=== PATIENT | female | born 1985 | race Caucasian/White ===

== ENCOUNTER 2018-05-27 14:20 | Emergency (ER) | payer OTHER ==
--- OUTSIDE RECORDS SUMMARY | 2018-05-27 14:22 | XMS REPORT ---
:1985 [facility] Address [address] [place] [address] Dr. Manuel [address] [place] [id number] Care Team Providers Name Role Phone Unavailable Unavailable Unavailable Problems This patient has no known problems. Allergies, Adverse Reactions, Alerts This patient has no known allergies or adverse reactions. Medications This patient has no known medications.
[2018-05-27] MEDS ORDERED: predniSONE 20 MG TAB ONE (15:24)
--- NOTE | 2018-05-27 15:34 | ER ---
Nurse's Notes [facility] Name: Shelly Gentile Age: 33 yrs Sex: Female : 1985 Arrival Date: 05/27/2018 Time: 14:25 Bed DIS1 Private MD: None, None Diagnosis: Urticaria, unspecified Presentation: 05/27 14:51 Presenting complaint: Patient states: Reports hx of "chronic" hives, states,. " They ph went away when I was and then came back really bad." Hives notes to back and abdomen, pt reports itching, denies SOB. Transition of care: patient was not received from another setting of care. Onset: The symptoms/episode began/occurred 20 year(s) ago. Anaphylaxis evaluation, no signs or symptoms of anaphylaxis were noted. Onset of symptoms was May 27, 2018. Risk Assessment: Do you want to hurt yourself or someone else? Patient reports no desire to harm self or others. Initial Sepsis Screen: Does the patient meet any 2 criteria? No. Patient's initial sepsis screen is negative. Does the patient have a suspected source of infection? No. Patient's initial sepsis screen is negative. Care prior to arrival: None. 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 - Social history:: Smoking status: Patient/guardian denies using tobacco. - Ebola Screening: : No symptoms or risks identified at this time. Screenin:20 Abuse screen: Denies threats or abuse. Denies injuries from another. Nutritional sv screening: No deficits noted. Tuberculosis screening: No symptoms or risk factors identified. Fall Risk None identified. Assessment: 15:20 General: Appears in no apparent distress. comfortable, Behavior is calm, cooperative, sv appropriate for age. Pain: Denies pain. Neuro: Level of Consciousness is awake, alert, obeys commands, Oriented to person, place, time, situation, Gait is steady. Respiratory: Airway is patent Respiratory effort is even, unlabored, Respiratory pattern is regular, symmetrical. Derm: Skin is pink, warm \\T\\ dry. Rash noted that is urticaria, on "all over". Vital Signs: 14:53 BP 99 / 80; Pulse 87; Resp 18; Temp 98.0; Pulse Ox 100% on R/A; ph ED Course: 14:25 Patient arrived in ED. mr 14:25 None, None is Private Physician. mr 14:28 Yumiko Burgos FNP-C is [facility]. kb 14:28 Dre Perez MD is Attending Physician. kb 14:48 Abimbola Bolaños, NIRALI is Primary Nurse. sv 14:53 Triage completed. ph 14:54 Arm band placed on Patient placed in an exam room. ph 15:20 Patient has correct armband on for positive identification. sv 15:41 No provider procedures requiring assistance completed. Patient did not have IV access sv during this emergency room visit. Administered Medications: 15:23 Drug: predniSONE 20 mg Route: PO; sv 15:44 Follow up: Response: No adverse reaction sv Outcome: 15:34 Discharge ordered by MD. kb 15:42 Discharged to home ambulatory, with family. sv 15:42 Condition: stable 15:42 Discharge instructions given to patient, Instructed on discharge instructions, follow up and referral plans. medication usage, Demonstrated understanding of instructions, follow-up care, medications, Prescriptions given X 2. 15:43 Patient left the ED. sv Signatures: Yumiko Burgos FNP-C FNP-Darianb Abimbola Bolaños, RN NIRALI Sarah Osullivan Hillary Mandel RN RN
--- NOTE | 2018-05-27 15:35 | EDPHYS ---
Physician Documentation [facility] Name: Shelly Gentile Age: 33 yrs Sex: Female : 1985 Arrival Date: 05/27/2018 Time: 14:25 Bed DIS1 Private MD: None, None ED Physician Dre Perez HPI: 05/27 15:33 This 33 yrs old Female presents to ER via Ambulatory with complaints of Hives.kb 15:33 The patient's rash thought to be caused by an unknown cause. The rash is located on the kb body diffusely. The rash can be described as urticarial. Onset: The symptoms/episode began/occurred 20 year(s) ago. Associated signs and symptoms: Pertinent positives: itching. Severity of symptoms: At their worst the symptoms were moderate in the emergency department the symptoms are unchanged. Treatment given at home: Benadryl. The patient has experienced similar episodes in the past, chronically. The patient has not recently seen a physician. Pt states "I suffer from chronic hives and they have been flaring up really bad since I delivered my son 5 weeks ago. I figured I would get them checked out while I was here with him.". 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 - Social history:: Smoking status: Patient/guardian denies using tobacco. - Ebola Screening: : No symptoms or risks identified at this time. ROS: 15:32 Constitutional: Negative for fever, chills, and weight loss, ENT: Negative for injury, kb pain, and discharge, Neck: Negative for injury, pain, and swelling, Cardiovascular: Negative for chest pain, palpitations, and edema, Respiratory: Negative for shortness of breath, cough, wheezing, and pleuritic chest pain, Abdomen/GI: Negative for abdominal pain, nausea, vomiting, diarrhea, and constipation, : Negative for injury, bleeding, discharge, and swelling, MS/Extremity: Negative for injury and deformity, Neuro: Negative for headache, weakness, numbness, tingling, and seizure. 15:32 Skin: Positive for rash, diffusely. Exam: 15:32 Constitutional: This is a well developed, well nourished patient who is awake, alert, kb and in no acute distress. Head/Face: Normocephalic, atraumatic. Chest/axilla: Normal chest wall appearance and motion. Nontender with no deformity. No lesions are appreciated. Cardiovascular: Regular rate and rhythm with a normal S1 and S2. No gallops, murmurs, or rubs. Normal PMI, no JVD. No pulse deficits. Respiratory: Lungs have equal breath sounds bilaterally, clear to auscultation and percussion. No rales, rhonchi or wheezes noted. No increased work of breathing, no retractions or nasal flaring. Abdomen/GI: Soft, non-tender, with normal bowel sounds. No distension or tympany. No guarding or rebound. No evidence of tenderness throughout. MS/ Extremity: Pulses equal, no cyanosis. Neurovascular intact. Full, normal range of motion. Neuro: Awake and alert, GCS 15, oriented to person, place, time, and situation. Cranial nerves II-XII grossly intact. Motor strength 5/5 in all extremities. Sensory grossly intact. Cerebellar exam normal. Normal gait. 15:32 Skin: consistent with urticaria, and is diffusely located. Vital Signs: 14:53 BP 99 / 80; Pulse 87; Resp 18; Temp 98.0; Pulse Ox 100% on R/A; ph MDM: 14:30 Patient medically screened. kb 15:32 Data reviewed: vital signs, nurses notes. Data interpreted: Pulse oximetry: on room air kb is 100 %. Interpretation: normal. 15:32 Counseling: I had a detailed discussion with the patient and/or guardian regarding: the kb historical points, exam findings, and any diagnostic results supporting the discharge/admit diagnosis, the need for outpatient follow up, a manager water wastewater, to return to the emergency department if symptoms worsen or persist or if there are any questions or concerns that arise at home. Administered Medications: 15:23 Drug: predniSONE 20 mg Route: PO; sv 15:44 Follow up: Response: No adverse reaction sv Disposition: 18:55 Co-signature as Attending Physician, Dre Perez MD. rn Disposition: 05/27/18 15:34 Discharged to Home. Impression: Urticaria, unspecified. - Condition is Stable. - Discharge Instructions: Hives, [id number]. - Prescriptions for Pepcid 20 mg Oral Tablet - take 1 tablet by ORAL route every 12 hours for 5 days; 10 tablet. Prednisone 20 mg Oral Tablet - take 2 tablet by ORAL route once daily for 5 days; 10 tablet. - Medication Reconciliation Form, Thank You Letter, Antibiotic Education, Prescription Opioid Use form. - Follow up: Emergency Department; When: As needed; Reason: Worsening of condition. Follow up: Private Physician; When: 2 - 3 days; Reason: Recheck today's complaints, Continuance of care, Re-evaluation by your physician. Signatures: Yumiko Burgos, ERICH-C [place]A REPAIRER-Abimbola Bray RN RN Dre Rodriguez MD MD rn Hillary Mandel RN RN ph Corrections: (The following items were deleted from the chart) 15:43 15:34 05/27/2018 15:34 Discharged to Home. Impression: Urticaria, unspecified. sv Condition is Stable. Forms are Medication Reconciliation Form, Thank You Letter, Antibiotic Education, Prescription Opioid Use. Follow up: Emergency Department; When: As needed; Reason: Worsening of condition. Follow up: Private Physician; When: 2 - 3 days; Reason: Recheck today's complaints, Continuance of care, Re-evaluation by your physician. kb
== END 2018-05-27 15:43 | disposition home or self-care (01) ==
LOC: ER 14:20
DX: L50.9 Urticaria, unspecified (principal)
CPT/HCPCS: 99283; J7512

== ENCOUNTER 2021-12-28 06:38 | Emergency (ER) | payer OTHER ==
--- OUTSIDE RECORDS SUMMARY | 2021-12-28 06:41 | XMS REPORT | Continuity of Care Document ---
:1985 Author Organization [facility] t Address [address] [place] [address] Care Team Providers Name Role Phone HAROON SAEED Primary Care Physician Unavailable Idania Edgar Attending Clinician [phone] Kim Prescott Attending Clinician Payers Payer Name Policy Type Policy Number Effective Date Expiration Date S son[place] [employer] [id number] 2021 HEALTH 00:00:00 Problems Condition Condition Condition Status Onset Resolution Last Treating Co mments Source Name Details Category Date Date Treatment Clinician Date BMI BMI Disease Active 2019- Univers 31.0-31.9, 31.0-31.9, 5-28 it y of adult adult 00:00: [place] [address] Medical Branch 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 9-09 ity of 00:00: [place] [address] Medical Branch Class 1 Class 1 Disease Active Univers obesity obesity 8-12 [place] of with body [place] index 00 [place] dical (BMI) of (BMI) of Branch 31.0 to 31.0 to 31.9 in 31.9 in adult, adult, unspecifie unspecifie d obesity d obesity type, type, unspecifie unspecifie d whether d whether serious serious comorbidit comorbidit y present y present Encounter Encounter Disease Active Uni vers for other for other 3-13 ity of general general 00:00: [place] counseling counseling 00 Me dical or advice or advice Bran ch on on contracept contracept ion ion Allergies, Adverse Reactions, Alerts Allergy Allergy Status Severity Reaction(s) Onset Inactive Treating Comm ents Source Name Type Date Date Clinician NO KNOWN Drug Active Univers ALLERGIE Class ity of S [facility] Social History Social Habit Start Date Stop Date Quantity Comments Source ASSERTION 2021-09-27 [facility] 00:00:00 [facility] History of tobacco 2007-09-20 Cigarette Smoker University of use 00:00:00 [facility] Alcohol intake 2021-12-08 2021-12-08 Current [facility] 00:00:00 00:00:00 non-drinker of [facility] alcohol [place] (finding) Exposure to 2021-11-27 2021-12-07 Not sure [facility] SARS-CoV-2 (event) 00:00:00 14:48:00 [facility] Tobacco use and 2021-12-07 2021-12-07 Smokeless Universit y of exposure 00:00:00 00:00:00 tobacco non-user [facility] dical [place] Cigarettes smoked 2021-12-07 2021-12-07 [facility] ity of current (pack per 00:00:00 00:00:00 ) - Reported Branch Cigarette 2021-12-07 2021-12-07 University of pack-years 00:00:00 00:00:00 [facility] Tobacco Comment 2021-12-07 2021-12-07 half a pack a Univer sity of 00:00:00 00:00:00 day [facility] Sex Ass[birth year] At [birth year] Universit y of 00:00:00 00:00:00 [facility] Smoking Status Start Date Stop Date Source Smokes tobacco daily 2021-12-07 00:00:00 [facility] ity of [facility] Medications Ordered Filled Start Stop Current Ordering Indication Dosage Frequency Signature Comments Components Source Medication Medication Date Date Medication? Clinician (SIG) Name Name PNV 67-iron Yes [id number] 1{each} Take 1 Univers ps-folate 9-12 Each by ity of no.1-dha 00:00: mouth [place] (VITAFOL 00 daily. Medical ULTRA) 29 Branch mg iron- 1 mg-200 mg Cap PNV 67-iron Yes [id number] 1{each} Take 1 Univers ps-folate 9-12 Each by ity of no.1-dha 00:00: mouth [place] (VITAFOL 00 daily. Medical ULTRA) 29 Branch mg iron- 1 mg-200 mg Cap Yes [id number] 1{tbl} Take 1 U nivers vit 9-09 tablet by ity of no.130-iron 00:00: mouth in [place] -folic 00 the Medical ( morning. Branch VITAMIN) Yes [id number] 1{tbl} Take 1 U nivers vit 9-09 tablet by ity of no.130-iron 00:00: [place] -folic 00 the Medical ( morning. Branch VITAMIN) Immunizations Ordered Filled Immunization Date Status Comments [facility] e Immunization Name Name Varicella 2019-06-11 Completed University of (varivax)(chicken 00:00:00 [place] M edical pox) Branch Varicella 2019-06-11 Completed University of (varivax)(chicken 00:00:00 [place] M edical pox) [place] TDAP 2019-03-30 Completed University of 00:00:00 [facility] Influenza Virus 2019-03-30 Completed Universit y of Vaccine Quad .5 mL 00:00:00 [facility] 6+ MO [place] TDAP 2019-03-30 Completed University of 00:00:00 [facility] Influenza Virus 2019-03-30 Completed Universit y of Vaccine Quad .5 mL 00:00:00 [facility] 6+ MO [place] TDAP 2018-01-28 Completed University of 00:00:00 [facility] TDAP 2018-01-28 Completed University of 00:00:00 [facility] Procedures This patient has no known procedures. Encounters Start End Encounter Admission Attending Care Care Encounter Source Date/Time Date/Time Type Type Clinicians Facility Department ID 2022-01-04 2022-01-[address] [facility] [id number] Univers 13:00:00 13:00:00 [id number] ity [facility] 2022-01-04 2022-01-[address] [facility] [id number] Univers 13:00:00 13:00:00 ity [facility] 2022-01-02 2022-01-[address] [facility] [id number] Univers 13:00:00 13:00:00 [id number] ity of [facility] 2021-12-15 2021-12-15 [facility] [id number] Univers 00:00:00 00:00:00 Idania Acuña PORTER SAMPLE CASE [id number] ity of REGIONAL [id number] Amari as MATERNAL [id number] [facility] [address] [place] [address] 2021-12-11 2021-12-11 Telephone Tomasz [facility] [id number] Univers 00:00:00 00:00:00 Kim Adams PORTER SAMPLE CASE [id number] ity of REGIONAL [id number] Amari as MATERNAL [id number] [facility] & CHILD [address] [place] [address] Results This patient has no known results.
[2021-12-28 07:08] LABS: Urine Blood Negative (Negative); Urine Glucose Negative (Negative); Urine Protein Negative (Negative); Urine Specific Gravity >=1.030 (1.005-1.030)
[2021-12-28] MEDS ORDERED: ONDANSETRON 4 MG/2 ML VIAL ONE (07:17)
[2021-12-28] MEDS ORDERED: NA CHLORIDE 0.9% 1,000 ML ONE (07:17)
[2021-12-28 07:35] LABS: Absolute Lymphocytes (CBC) 1.8 K/uL (0.7-4.9); Hematocrit 36.4 % (36.0-45.0); Lymphocytes % 14.8 % (15.3-44.8); MCV 87.5 fL (80-100); MPV 7.2 fL (7.6-11.3); RBC Red Blood Cell Count 4.16 M/uL (3.86-4.86)
[2021-12-28 07:48] LABS: Calcium Oxalate Crystals- Ur Few /HPF (None Seen); Urine RBC <5 /HPF (None Seen)
[2021-12-28 07:56] LABS: Albumin 3.2 g/dL (3.4-5.0); Bilirubin Total 0.2 mg/dL (0.2-1.0); Potassium 3.5 mmol/L (3.5-5.1); Protein, Total 7.5 g/dL (6.4-8.2)
--- NOTE | 2021-12-28 08:42 | RAD REPORT ---
EXAM DESCRIPTION: US - OB Limited - 12/28/2021 8:30 am CLINICAL HISTORY: Abd pain age. COMPARISON: OB FOLLOW UP dated 07/08/2008; TRANSVAG OB CERVIX ASSESSMENT dated 12/28/2021 FINDINGS: A single gestation is identified. Heart rate normal. The cervix is closed and measures 4.3 cm measurements are as follows: FL:2.1 Centimeters 16 week 1 day The estimated gestational age (EGA) is 16 week 1 day with an PAMELA of06/13/2022. The placenta is posterior. No placenta previa. The maternal adnexa show no worrisome findings. IMPRESSION: Single viable IUP with positive heart tones with estimated gestational age of 16 w [place] 1 day and PAMELA of 06/13/2022. Closed cervix.
--- NOTE | 2021-12-28 08:42 | RAD REPORT ---
EXAM DESCRIPTION: US - TRANSVAG OB CERVIX ASSESSMENT - 12/28/2021 8:30 am CLINICAL HISTORY: Abd pain age. COMPARISON: OB FOLLOW UP dated 07/08/2008; TRANSVAG OB CERVIX ASSESSMENT dated 12/28/2021 FINDINGS: A single gestation is identified. Heart rate normal. The cervix is closed and measures 4.3 cm measurements are as follows: FL:2.1 Centimeters 16 week 1 day The estimated gestational age (EGA) is 16 week 1 day with an PAMELA of06/13/2022. The placenta is posterior. No placenta previa. The maternal adnexa show no worrisome findings. IMPRESSION: Single viable IUP with positive heart tones with estimated gestational age of 16 w [place] 1 day and PAMELA of 06/13/2022. Closed cervix.
--- NOTE | 2021-12-28 08:59 | ER ---
Nurse's Notes [facility] Name: Shelly Gentile Age: 36 yrs Sex: Female : 1985 Arrival Date: 12/28/2021 Time: 06:41 Bed 8 Private MD: Diagnosis: Nausea with vomiting, unspecified;Low back pain Presentation: 12/28 06:50 Chief complaint: Patient states: i am having extream back pain and upper abdominal pain kd3 that started at 2 am this morning and has only gotten worse. i started vomiting about 30 minutes ago and I am still nauseous. I am 4 months . I also feel very bloated. Coronavirus screen: Vaccine status: Patient reports being unvaccinated. Ebola Screen: No symptoms or risks identified at this time. Initial Sepsis Screen: Does the patient meet any 2 criteria? No. Patient's initial sepsis screen is negative. Does the patient have a suspected source of infection? No. Patient's initial sepsis screen is negative. Risk Assessment: Do you want to hurt yourself or someone else? Patient reports no desire to harm self or others. Onset of symptoms was December 28, 2021. 06:50 Method Of Arrival: Ambulatory kd3 06:50 Acuity: CARMEN 3 kd3 Triage Assessment: 06:52 General: Appears uncomfortable, Behavior is calm, cooperative. Pain: Complains of pain kd3 in epigastric area. Neuro: Level of Consciousness is awake, alert, obeys commands, Oriented to person, place, time, situation. Respiratory: Airway is patent Trachea midline Respiratory effort is even, unlabored, Respiratory pattern is regular, symmetrical. Musculoskeletal: Circulation, motion, and sensation intact. 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 currently kd3 Historical: - Allergies: 06:52 No Known Allergies; kd3 - Home Meds: 06:52 None [Active]; kd3 - PMHx: 06:52 None; kd3 - Immunization history:: Adult Immunizations up to date. - Social history:: Smoking status: unknown. Screenin:53 Abuse screen: Denies threats or abuse. Denies injuries from another. Nutritional kd3 screening: No deficits noted. Tuberculosis screening: No symptoms or risk factors identified. Fall Risk None identified. Assessment: 06:59 General: Appears uncomfortable, Behavior is calm, cooperative. Neuro: Level of kd3 Consciousness is awake, alert, obeys commands, Oriented to person, place, time, situation. Respiratory: Airway is patent Trachea midline Respiratory effort is even, unlabored, Respiratory pattern is regular, symmetrical. 07:05 Reassessment: No changes from previously documented assessment. report received from ll1 material handler 1st shift RN. 07:20 Reassessment: No changes from previously documented assessment. Patient and/or family ll1 updated on plan of care and expected duration. Pain level reassessed. Patient is alert, oriented x 3, equal unlabored respirations, skin warm/dry/pink. 08:20 Reassessment: No changes from previously documented assessment. Patient and/or family kr3 updated on plan of care and expected duration. Pain level reassessed. 09:20 Reassessment: No changes from previously documented assessment. Patient and/or family kr3 updated on plan of care and expected duration. Pain level reassessed. 10:05 Reassessment: Patient states feeling better. Patient states symptoms have improved. kr3 Vital Signs: 06:50 Weight 77.11 kg; Height 5 ft. 2 in. (157.48 cm); Pain 10/10; kd3 06:59 BP 139 / 83; Pulse 76; Resp 20; Temp 98.0; Pulse Ox 100% on R/A; kd3 07:58 BP 111 / 72; Pulse 81; Resp 18; Pulse Ox 100% ; ll1 09:00 BP 111 / 72; Pulse 61; Resp 18; Pulse Ox 100% on R/A; kr3 09:00 BP 112 / 74; Pulse 70; Resp 18; Pulse Ox 100% on R/A; kr3 06:50 Body Mass Index 31.09 (77.11 kg, 157.48 cm) kd3 ED Course: 06:41 Patient arrived in ED. ja2 06:49 Addie Gaytan, NIRALI is Primary Nurse. kd3 06:52 Triage completed. kd3 06:52 Arm band placed on right wrist. kd3 06:53 Patient has correct armband on for positive identification. Placed in gown. kd3 07:07 Deniz Patino MD is Attending Physician. [id number] 07:26 Urine Culture Sent. ll1 07:27 Inserted saline lock: 20 gauge in right antecubital area, using aseptic technique. ll1 Blood collected. 08:31 OB Limited In Process Unspecified. EDMS 08:31 TRANSVAG OB CERVIX ASSESSMENT In Process Unspecified. EDMS 10:07 No provider procedures requiring assistance completed. IV discontinued, intact, kr3 bleeding controlled, No redness/swelling at site. Pressure dressing applied. Administered Medications: 07:25 Drug: NS 0.9% 1000 ml Route: IV; Rate: 1 bolus; Site: right antecubital; ll1 10:08 Follow up: Response: No adverse reaction; IV Status: Completed infusion; IV Intake: kr3 1000ml 07:25 Drug: Zofran (Ondansetron) 4 mg Route: IVP; Site: right antecubital; ll1 10:08 Follow up: Response: No adverse reaction kr3 Medication: 06:53 VIS not applicable for this client. kd3 Intake: 10:08 IV: 1000ml; Total: 1000ml. kr3 Outcome: 08:58 Discharge ordered by . 11 10:07 Discharged to home kr3 10:07 Condition: stable 10:07 Discharge instructions given to patient, Instructed on discharge instructions, follow up and referral plans. medication usage, Demonstrated understanding of instructions, follow-up care, medications, Prescriptions given X 1. 10:07 Patient left the ED. kr3 Signatures: Dispatcher [employer] EDMS Jennifer Kendrick RN RN ll1 Christin Blake Kyli, RN RN kd3 Deniz Patino MD MD [id number] Humaira De León RN RN kr3
--- NOTE | 2021-12-28 08:59 | EDPHYS ---
Physician Documentation [facility] Name: Shelly Gentile Age: 36 yrs Sex: Female : 1985 Arrival Date: 12/28/2021 Time: 06:41 Bed 8 Private MD: ED Physician Deniz Patino HPI: 12/28 07:18 This 36 yrs old Female presents to ER via Ambulatory with complaints of Back Pain, jr11 Nausea/Vomiting, Abdominal Pain. 07:18 The patient presents with pain that is acute, with no known mechanism of injury, jr11 diffuse across mid back. The symptoms are located in the lumbar spine. Onset: The symptoms/episode began/occurred 5 hour(s) ago. The pain does not radiate. Associated signs and symptoms: Pertinent positives: nausea, vomiting, x4 NBNB. The problem was sustained from unknown cause. Modifying factors: The patient symptoms are alleviated by nothing, the patient symptoms are aggravated by any movement. Severity of symptoms: At their worst the symptoms were moderate, in the emergency department the symptoms are unchanged. Pt is a lost 1 due to sAB 2/2 trauma unknown LMP ?4-5 mo here with mid back pain N/V x 4, no prior history of this. Denies being post prandial. No Abd pain, no diarrhea +polyuria. 07:18 +PNC over at [facility] . 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 currently kd3 Historical: - Allergies: 06:52 No Known Allergies; kd3 - Home Meds: 06:52 None [Active]; kd3 - PMHx: 06:52 None; kd3 - Immunization history:: Adult Immunizations up to date. - Social history:: Smoking status: unknown. ROS: 07:18 All other systems are negative. jr11 Exam: 07:18 Constitutional: This is a well developed, well nourished patient who is awake, alert, jr11 and in no acute distress. Head/Face: Normocephalic, atraumatic. Eyes: Extra-ocular motions intact. Lids and lashes normal. Conjunctiva and sclera are non-icteric and not injected. Cornea within normal limits. Periorbital areas with no swelling, redness, or edema. ENT: Nares patent. No nasal discharge, no septal abnormalities noted. Oropharynx with no redness, swelling, or masses, exudates, or evidence of obstruction, uvula midline. Mucous membranes moist. Neck: Trachea midline, no thyromegaly or masses palpated, and no cervical lymphadenopathy. Supple, full range of motion without nuchal rigidity, or vertebral point tenderness. No Meningismus. Chest/axilla: Normal chest wall appearance and motion. Nontender with no deformity. No lesions are appreciated. Cardiovascular: Regular rate and rhythm with a normal S1 and S2. No gallops, murmurs, or rubs. Normal PMI, no JVD. No pulse deficits. Respiratory: Lungs have equal breath sounds bilaterally, clear to auscultation and percussion. No rales, rhonchi or wheezes noted. No increased work of breathing, no retractions or nasal flaring. Abdomen/GI: gravid, non tender Skin: Warm, dry with normal turgor. Normal color with no rashes, no lesions, and no evidence of cellulitis. MS/ Extremity: Pulses equal, no cyanosis. Neurovascular intact. Full, normal range of motion. Neuro: Awake and alert, GCS 15, oriented to person, place, time, and situation. No gross motor or sensory deficits. Vital Signs: 06:50 Weight 77.11 kg; Height 5 ft. 2 in. (157.48 cm); Pain 10/10; kd3 06:59 BP 139 / 83; Pulse 76; Resp 20; Temp 98.0; Pulse Ox 100% on R/A; kd3 07:58 BP 111 / 72; Pulse 81; Resp 18; Pulse Ox 100% ; ll1 09:00 BP 111 / 72; Pulse 61; Resp 18; Pulse Ox 100% on R/A; kr3 09:00 BP 112 / 74; Pulse 70; Resp 18; Pulse Ox 100% on R/A; kr3 06:50 Body Mass Index 31.09 (77.11 kg, 157.48 cm) kd3 MDM: 07:15 Patient medically screened. jr11 07:18 Differential diagnosis: Obesity uti vs pyelo, msk injurym N/V, viral syndrome. Data jr11 reviewed: vital signs, nurses notes. ED course: Patient is a 36-year-old female that is , possibly 4 to 5 months, with abdominal bloating, nausea vomiting and mid back pain. Differential as above, will treat symptomatically in the meantime, given that she has not had an ultrasound, and is feeling abdominal bloating with mid back pain, will do an ultrasound. We will also check her urine rule out UTI versus J Carlos.. 08:57 ED course: Pt states all symptoms resolved, no more pain, will rx zofran with watchful jr11 waiting to f/u her own OBGYN on Saturday. Return is worsening. . 12/28 07:08 Order name: CBC with Diff; Complete Time: 08:29 12/28 07:08 Order name: CMP; Complete Time: 08:12/28 07:08 Order name: Lipase; Complete Time: 08:12/28 07:08 Order name: Urine Microscopic Only; Complete Time: 08:12/28 07:09 Order name: Urine Dipstick-Ancillary; Complete Time: 08:29 EDMS 12/28 07:16 Order name: Urine Culture [facility] 12/28 07:08 Order name: IV Saline Lock; Complete Time: 07:09 12/28 07:16 Order name: Quantitative Hcg; Complete Time: 08:29 12/28 07:49 Order name: OB Limited; Complete Time: 08:43 EDMS 12/28 08:19 Order name: TRANSVAG OB CERVIX ASSESSMENT; Complete Time: 08:43 EDMS 12/28 07:08 Order name: Labs collected and sent; Complete Time: 07:09 Administered Medications: 07:25 Drug: NS 0.9% 1000 ml Route: IV; Rate: 1 bolus; Site: right antecubital; ll1 10:08 Follow up: Response: No adverse reaction; IV Status: Completed infusion; IV Intake: kr3 1000ml 07:25 Drug: Zofran (Ondansetron) 4 mg Route: IVP; Site: right antecubital; ll1 10:08 Follow up: Response: No adverse reaction kr3 Disposition Summary: 12/28/21 08:58 Discharge Ordered Location: Home [facility] Condition: Stable jr Diagnosis - Nausea with vomiting, unspecified jr11 - Low back pain jr11 Followup: jr11 - With: Private Physician - When: You OBGYN - Reason: Continuance of care Discharge Instructions: - Discharge Summary Sheet jr11 - Acute Back Pain, Adult jr11 - Nausea and Vomiting, Adult jr11 Forms: - Medication Reconciliation Form jr11 - Thank You Letter jr11 - Antibiotic Education jr11 - Prescription Opioid Use jr11 Prescriptions: - Zofran 4 mg Oral Tablet - take 1 tablet by ORAL route every 12 hours As needed; 20 tablet; Refills: 0, jr11 Product Selection Permitted Signatures: Dispatcher [employer] EDJennifer Martínez RN RN ll1 Addie Gaytan RN RN kd3 Deniz Patino MD MD jr11 Humaira De León RN kr3 Corrections: (The following items were deleted from the chart) 07:49 07:17 OB Complete+US.RAD.BRZ ordered. EDNM EDMS
[2021-12-29 17:11] VITALS: TEMP 98; O2SAT 100
[2021-12-29 17:15] VITALS: BP 112/74
== END 2021-12-28 10:07 | disposition home or self-care (01) ==
LOC: ER 06:38
DX: O26.892 Other specified pregnancy related conditions, second trimester (principal); O21.9 Vomiting of pregnancy, unspecified; Z3A.16 16 weeks gestation of pregnancy
CPT/HCPCS: 96361; 87088; 85025; 87086; 36415; 84702; 83690; 80053; 76815; 76817; 96374; 99284; J7030; J2405; 81003; 81015

== ENCOUNTER 2023-02-25 12:57 | Emergency (ER) | payer SELFPAY ==
--- OUTSIDE RECORDS SUMMARY | 2023-02-25 13:07 | XMS REPORT | Continuity of Care Document ---
:1985 Author Organization [facility] t Address [address] [facility] [place] [address] Care Team Providers Name Role Phone Timmy Edgar Primary Care Physician [phone] TIMMY SANTAMARIA Attending Clinician Unavailable Savannah Wilson CNM Attending Clinician SAVANNAH WILSON Attending Clinician Unavailable VICTOR HUGO LEE Attending Clinician Unavailable Victor Hugo Lee MD Attending Clinician Timmy Edgar Attending Clinician [phone] NIKITA WILLIAM Attending Clinician Unavailable Delbert Mcgraw MD Attending Clinician Lucius Ivory MD Attending Clinician Hannah Borrego MD Attending Clinician [phone] Doctor Unassigned, Leigh Attending Clinician Unavailable Provider, Les Temp Attending Clinician Unavailable Ambar Paige Attending Clinician Unavailable Milton, Les Attending Clinician Unavailable JAVON JENSEN Attending Clinician Unavailable Javon Jensen MD Attending Clinician Haroon Cuello Attending Clinician Ultrasound, RiyaMftanesha Attending Clinician Unavailable Nikia Carey MD Attending Clinician [phone] NIKIA CAREY Attending Clinician Unavailable Jeny CAMPOVERDE, Loan Attending Clinician Unavailable Carlos JUNG, Rina Attending Clinician RUMA ROSAS Attending Clinician Unavailable Charlie CHOUDHURY, Ruma Attending Clinician MOUSTAPHA MENDOZA Attending Clinician Unavailable KIM CASILLAS Attending Clinician Unavailable Sonja JUNG, Kim Adams Attending Clinician HAROON SAEED Attending Clinician Unavailable Kobe Cabrera DO Attending Clinician Eran CARD, Sera Attending Clinician Akhil Ruiz MD Attending Clinician VICTOR HUGO LEE Admitting Clinician Unavailable Klaus CARD, Victor Hugo Admitting Clinician Eran ACRD, Sera Admitting Clinician Payers Payer Name Policy Type Policy Number Effective Date Expiration Date [facility] [id number] 2018 [facility] MEDICAID 00:00:00 [place] CHILDR[employer]AR [id number] 2021 00:00:00 Problems Condition Condition Condition Status Onset Resolution Last Treating Co mments Source Name Details Category Date Date Treatment Clinician Date Forceps Forceps Disease Active Univers delivery delivery 3-14 ity of with baby with baby 00:00: Veronika s delivered delivered 00 [facility] Single Single Disease Active Univers live live 3-14 it y of 00:00: [place] [address] Medical Branch Obesity Obesity Disease Active Univers (BMI (BMI 3-14 ity of 30-39.9) 30-39.9) 00:00: [place] [facility] Obstetrica Obstetrica Disease Active Overview : Univers l l 3-14 Formattin ity of laceration laceration 00:00: g of this [place] [address] note Medical might be Branch different from the original. Episiotom y Acute Acute Disease Active Univers blood loss blood loss 3-14 it y of anemia anemia 00:00: [address] Branch Labor and Labor and Disease Active Uni vers delivery, delivery, 3-13 ity of indication [place] 00:00: [place] for care for care 00 Medica l Branch Positive Positive Disease Active Overview: Un patrizia GBS test GBS test 3-02 Formattin ity of 00:00: g of this [place] 00 note Medical might be Branch different from the original. 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:[place] 2 (HSV-2) 2 (HSV-2) 00 [facility] infection infection Bran ch affecting affecting in third in third trimester trimester Back pain Back pain Disease Active 2021-04 Uni vers affecting affecting 1-05 it[place] of [place] in second in second 00 [facility] trimester trimester Bran ch BMI BMI Disease Active 2021-04 Univers 32.0-32.9, 32.0-32.9, 1-05 it y of adult adult 00:00: [place] 00 [facility] Disease Active 2021-04 Uni vers headache headache 1-05 ity of in second in second 00:[place] trimester trimester 00 [facility] Abnormal Abnormal Disease Active 2021-04 Overview: Un patrizia maternal maternal 0-07 Formattin ity of glucose glucose 00:00: g of this [place] tolerance, tolerance, 00 note Me dical antepartum antepartum might be Branch different from the original. pending 3hr , repeat at 26 weeks-pas sed Tobacco Tobacco Disease Active 2021-04 Univers use use 0-06 ity of disorder disorder 00:00: [place] 00 [facility] Branch Supervisio Supervisio Disease Active 2021-04 U nivers n of n of 0-06 ity of high-risk high-risk 00:00[place] 00 Medi hank of elderly of elderly Br anch multigravi multigravi da da Multiparit Multiparit Disease Active 2021-04 U nivers y y 0-06 ity of 00:00: [place] [facility] Branch AMA AMA Disease Active 2021-04 Univers (advanced (advanced 0-06 ity of maternal maternal 00:00: [place] age) age) 00 Medical multigravi multigravi Br anch da 35+ da 35+ Tobacco Tobacco Disease Active 2021-04 Univers use in use in 0-06 ity of 00:00: [facility] [address] BMI BMI Disease Active 2019- Univers 31.0-31.9, 31.0-31.9, 5-28 it y of adult adult 00:00: [address] 38 weeks 38 weeks Disease Active Unive rs gestation gestation 3-10 ity of of of 00:00: [place] 00 [facility] 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 9-09 ity of 00:00: [address] Herpes Herpes Disease Active Univers infection infection 9-09 ity of in in 00:00: [place] 00 [facility] Obesity in Obesity in Disease Active U nivers 8-12 ity of 00:00: [address] Encounter Encounter Disease Active Uni vers for other for other 3-13 ity of general general 00:00: [place] counseling counseling 00 Ar dical or advice or advice Bran ch on on contracept contracept ion ion Anemia, Anemia, Disease Active Univers 1-21 it y of 00:00: [address] Anemia of Anemia of Disease Active 2017-04 Uni vers mother in mother in 2-04 ity of , , 00:00[place] antepartum antepartum 00 Ar dical Branch Allergies, Adverse Reactions, Alerts Allergy Allergy Status Severity Reaction(s) Onset Inactive Treating Comm ents Source Name Type Date Date Clinician NO KNOWN Drug Active Univers ALLERGIE Class ity of S [facility] Social History Social Habit Start Date Stop Date Quantity Comments Source ASSERTION 2021-09-27 University 00:00:00 [facility] History of tobacco 2007-09-20 Cigarette Smoker University of use 00:00:00 [facility] 2022-06-25 2022-07-05 Not sure University SARS-CoV-2 (event) 00:00:00 13:20:00 [facility] Alcohol intake 2022-02-03 2022-02-03 Current University 00:00:00 00:00:00 non[facility]drinker of [facility] alcohol Branch (finding) History of Social 2021-12-07 2021-12-07 Univers ity of function 00:00:00 00:00:00 [facility] Tobacco use and 2021-12-07 2021-12-07 Smokeless Universit y of exposure 00:00:00 00:00:00 tobacco non-user [facility] dicny Branch Cigarettes smoked 2021-12-07 2021-12-07 Univers ity of current (pack per 00:00:00 00:00:00 [facility] ) - Reported Branch Cigarette 2021-12-07 2021-12-07 University of pack-years 00:00:00 00:00:00 [facility] Tobacco Comment 2021-12-07 2021-12-07 half a pack a Univer sity of 00:00:00 00:00:00 day [facility] Sex [birth year] Universit y of 00:00:00 00:00:00 [facility] Smoking Status Start Date Stop Date Source Smokes tobacco daily 2021-12-07 00:00:00 Univers ity of [facility] Medications Ordered Filled Start Stop Current Ordering Indication Dosage Frequency Signature Comments Components Source Medication Medication Date Date Medication? Clinician (SIG) Name Name hydrocortis Yes Topical Uni vers one 1 % 3-15 (Apply To ity of cream 13:00: Affected [place] 00 Areas), Medical BID, First Branch dose on Sat06/13/22 at 0800, Until Discontinu ed, Routine HYDROcodone Yes 1{tbl} 1 tablet, Univers -acetaminop 3-15 Oral, ity of hen (NORCO 02:04: Q6HPRN, [place] 5) 5-325 mg 46 Starting Medi hank tablet 1 on e Branch tablet 06/12/22 at 2104, Until Discontinu ed, Routine, Pain (scale 7-10) docusate Yes [id number] 200mg Take 2 U nivers 100 mg 3-15 capsules ity of capsule 00:00: by mouth [place] once daily Medical as needed Branch for Constipati on. ibuprofen Yes [id number] 600mg Take 1 Univers 600 mg 3-15 tablet by ity of tablet 00:00: mouth [place] 00 every 6 Medical (six) Branch hours as needed (Pain). Take with food or milk. HYDROcodone 2022-0 Yes [id number] 1{tbl} Take 1 Un patrizia -acetaminop 3-15 tablet by ity of hen 5-325 00:00: mouth [place] mg tablet 00 every 6 Medical (six) Branch hours as needed for Pain (scale 7-10). Indication s: acute pain docusate 3-0 Yes [id number] 200mg Take 2 U nivers 100 mg 3-15 capsules ity of capsule 00:00: by mouth [place] 00 once daily Medical as needed Branch for Constipati on. ibuprofen 2022-0 Yes [id number] 600mg Take 1 Univers 600 mg 3-15 tablet by ity of tablet 00:00: mouth [place] 00 every 6 Medical (six) Branch hours as needed (Pain). Take with food or milk. HYDROcodone 2022-0 Yes [id number] 1{tbl} Take 1 Un patrizia -acetaminop 3-15 tablet by ity of hen 5-325 00:00: mouth [place] mg tablet 00 every 6 Medical (six) Branch hours as needed for Pain (scale 7-10). Indication s: acute pain docusate 2022-0 Yes [id number] 200mg Take 2 U nivers 100 mg 3-15 capsules ity of capsule 00:00: by mouth [place] 00 once daily Medical as needed Branch for Constipati on. ibuprofen 3-0 Yes [id number] 600mg Take 1 Univers 600 mg 3-15 tablet by ity of tablet 00:00: mouth [place] 00 every 6 Medical (six) Branch hours as needed (Pain). Take with food or milk. HYDROcodone 2022-0 Yes [id number] 1{tbl} Take 1 Un patrizia -acetaminop 3-15 tablet by ity of hen 5-325 00:00: mouth [place] mg tablet 00 every 6 Medical (six) Branch hours as needed for Pain (scale 7-10). Indication s: acute pain docusate 2023-0 Yes [id number] 200mg Take 2 U nivers 100 mg 3-15 capsules ity of capsule 00:00: by mouth [place] 00 once daily Medical as needed Branch for Constipati on. ibuprofen 3-0 Yes [id number] 600mg Take 1 Univers 600 mg 3-15 tablet by ity of tablet 00:00: mouth [place] 00 every 6 Medical (six) Branch hours as needed (Pain). Take with food or milk. HYDROcodone 0 Yes [id number] 1{tbl} Take 1 Un patrizia -acetaminop 3-15 tablet by ity of hen 5-325 00:00: mouth [place] mg tablet 00 every 6 Medical (six) Branch hours as needed for Pain (scale 7-10). Indication s: acute pain HYDROcodone 2022-0 202- No 1{tbl} 1 tablet, Univers -acetaminop 3-14 03-14 Oral, ity of hen (NORCO 14:00: 14:49 ONCE, 1 [place] 5) 5-325 mg 00 :00 dose, On [facility] hank tablet 1 Sat tablet 06/12/22 at 0900, Routine rho(D) Yes 300ug 300 mcg, Univer s immune 3-14 Intramuscu ity of globulin 06:45: lar, ONCE, [place] (RHOGAM) 56 For 1 Medical syringe 300 dose, Branch mcg Conditiona l, Routine rho(D) Yes 300ug 300 mcg, Univer s immune 3-14 Intramuscu ity of globulin 06:45: [place], ONCE, [place] (RHOGAM) 56 For 1 Medical syringe 300 dose, Branch mcg Conditiona l, Routine ibuprofen Yes 600mg 600 mg, Univ ers (IBU) 3-14 Oral, ity of tablet 600 06:45: Q6HPRN, [place] mg 40 Starting Medical on Sat Branch 06/12/22 at 0145, Until Discontinu ed, Routine, Pain (scale 4-6) acetaminoph Yes 650mg 650 mg, Un patrizia en 3-14 Oral, ity of (TYLENOL) 06:45: Q6HPRN, [place] tablet 650 40 Starting Medic al mg on Sat06/12/22 at 0145, Until Discontinu ed, Routine, Pain (scale 1-3) diphenhydrA Yes 25mg 25 mg, Univ ers MINE 3-14 Oral, ity of (BENADRYL) 06:45: Q6HPRN, [place] tablet 25 40 Starting Medica l mg on Sat06/12/22 at 0145, Until Discontinu ed, Routine, Sleep, Itching ondansetron 2022-0 Yes 4mg 4 mg, Slow Univers (ZOFRAN 3-14 IV Push, ity of (PF)) 06:45: Q8HPRN, [place] injection 4 40 Starting Medi hank mg on [facility] 06/12/22 at 0145, Until Discontinu ed, Routine, Nausea and Vomiting (N/V) simethicone 2022-0 Yes 160mg 160 mg, Un patrizia (GAS RELIEF 3-14 Oral, ity of (SIMETHICON 06:45: PC+HSPRN, [place] E)) 40 Starting Medical chewable on [facility] tablet 160 06/12/22 at mg 0145, Until Discontinu ed, Routine, Gas docusate 2022-0 Yes 200mg 200 mg, Unive rs (COLACE) 3-14 Oral, ity of capsule 200 06:45: QDAILYPRN, [place] mg 40 Starting Medical on [facility] 06/12/22 at 0145, Until Discontinu ed, Routine, Constipati on magnesium 0 Yes 30mL 30 mL, Univer s hydroxide 06-12 Oral, ity of (MILK OF 06:45: QDAILYPRN, [place] MAGNESIA) 40 Starting Medica l 400 mg/5 mL on [facility] suspension 06/12/22 at 30 mL 0145, Until Discontinu ed, Routine, Constipati on benzocaine- 2022-0 Yes Topical, Un patrizia menthol 3-14 PRN, ity of (DERMOPLAST 06:45: Starting [place] ) 20-0.5 % 40 on [facility] Medical topical 06/12/22 at Branch spray 0145, Until Discontinu ed, Routine, Perineum discomfort human 2022-0 Yes .5mL 0.5 mL, Univers papillomav 314 Intramuscu ity of vac,9-rut(P 06:45: lar, [place] F) 40 ONCE-PRIOR Medical (GARDASIL-9 TO [place] ) syringe DISCHARGE, 0.5 mL 1 dose, Starting on Sat06/12/22 at 0145, Until Discontinu ed, Routine, Give vaccine prior to discharge ibuprofen 2022-0 Yes 600mg 600 mg, Univ ers (IBU) 3-14 Oral, ity of tablet 600 06:45: Q6HPRN, [place] mg 40 Starting Medical on Sat Branch 06/12/22 at 0145, Until Discontinu ed, Routine, Pain (scale 4-6) acetaminoph 202-0 Yes 650mg 650 mg, Un patrizia en 3-14 Oral, ity of (TYLENOL) 06:45: Q6HPRN, [place] tablet 650 40 Starting Medic al mg on Sat06/12/22 at 0145, Until Discontinu ed, Routine, Pain (scale 1-3) diphenhydrA 2022-0 Yes 25mg 25 mg, Univ ers MINE 3-14 Oral, ity of (BENADRYL) 06:45: Q6HPRN, [place] tablet 25 40 Starting Medica l mg on Sat06/12/22 at 0145, Until Discontinu ed, Routine, Sleep, Itching ondansetron 2022-0 Yes 4mg 4 mg, Slow Univers (ZOFRAN 314 IV Push, ity of (PF)) 06:45: Q8HPRN, [place] injection 4 40 Starting Medi hank mg on Sat Branch 06/12/22 at 0145, Until Discontinu ed, Routine, Nausea and Vomiting (N/V) simethicone 2022-0 Yes 160mg 160 mg, Un patrizia (GAS RELIEF 14 Oral, ity of (SIMETHICON 06:45: PC+HSPRN, [place] E)) 40 Starting Medical chewable on Sat tablet 160 06/12/22 at mg 0145, Until Discontinu ed, Routine, Gas docusate 2022-0 Yes 200mg 200 mg, Unive rs (COLACE) 3-14 Oral, ity of capsule 200 06:45: QDAILYPRN, [place] mg 40 Starting Medical on Sat Branch 06/12/22 at 0145, Until Discontinu ed, Routine, Constipati on magnesium 2022-0 Yes 30mL 30 mL, Univer s hydroxide 3-14 Oral, ity of (MILK OF 06:45: QDAILYPRN, [place] MAGNESIA) 40 Starting Medica l 400 mg/5 mL on Sat Branch suspension 06/12/22 at 30 mL 0145, Until Discontinu ed, Routine, Constipati on benzocaine- 2022-0 Yes Topical, Un patrizia menthol 3-14 PRN, ity of (DERMOPLAST 06:45: Starting [place] ) 20-0.5 % 40 on [facility] Medical topical 06/12/22 at [place] spray 0145, Until Discontinu ed, Routine, Perineum discomfort human 2022-0 Yes .5mL 0.5 mL, Univers papillomav 3-14 Intramuscu ity of vac,9-rut(P 06:45: lar, [place] F) 40 ONCE-PRIOR Medical (GARDASIL-9 TO [place] ) syringe DISCHARGE, 0.5 mL 1 dose, Starting on Sat06/12/22 at 0145, Until Discontinu ed, Routine, Give vaccine prior to discharge naloxone 2022-0 Yes .2mg 0.2 mg, Univer s (NARCAN) 3-14 Intramuscu ity o f injection 06:10: lar, [place] 0.2 mg 26 Q3HPRN, [facility] on Sat06/12/22 at 0110, Until Discontinu ed, Routine, Itching, PACU diphenhydrA 2022-0 Yes 25mg 25 mg, Univ ers MINE 3-14 Oral, ity of (BENADRYL) 06:10: Q4HPRN, [place] tablet 25 26 Starting Medica l mg on [facility] 06/12/22 at 0110, Until Discontinu ed, Routine, Itching, PACU naloxone 2022-0 Yes .2mg 0.2 mg, Univer s (NARCAN) 3-14 Intramuscu ity o f injection 06:10: lar, [place] 0.2 mg 26 Q3HPRN, [facility] on Sat06/12/22 at 0110, Until Discontinu ed, Routine, Itching, PACU diphenhydrA 2022-0 Yes 25mg 25 mg, Univ ers MINE 3-14 Oral, ity of (BENADRYL) 06:10: Q4HPRN, [place] tablet 25 26 Starting Medica l mg on [facility] 06/12/22 at 0110, Until Discontinu ed, Routine, Itching, PACU ketorolac 2022-0 2022- No 15mg 15 mg, Unive rs (TORADOL) 3-14 03-19 Slow IV ity of injection 06:10: 04:59 Push, [place] 15 mg 26 :00 Q6HPRN, 4 Medical doses, Branch Starting on Sat06/12/22 at 0110, Until 06/16/22 at 2359, Routine, Pain (scale 1-3), PACU ketorolac 2022- No 15mg 15 mg, Unive rs (TORADOL) 06-1219 Slow IV ity of injection 06:10: 04:59 Push, [place] 15 mg 26 :00 Q6HPRN, 4 Medical doses, Branch Starting on Sat06/12/22 at 0110, Until 06/16/22 at 2359, Routine, Pain (scale 1-3), PACU naloxone 2022- No .4mg 0.4 mg, Unive rs (NARCAN) 06-1216 Slow IV ity of injection 06:10: 06:09 [place], PRN [place] 0.4 mg 26 :26 - SEE Medical INSTRUCTIO Branch NS, Starting on Sat06/12/22 at 0110, Until [place] 06/14/22 at 0109, Routine, Analgesia Recovery, PACU diphenhydrA 2022- No 25mg 25 mg, Uni vers MINE 06-12 Slow IV ity of (BENADRYL) 06:10: 06:09 [place], [place] injection 26 :26 Q4HPRN, Medical 25 mg Starting Branch on Sat06/12/22 at 0110, Until 06/13/22 at 0109, Routine, Itching, PACU ondansetron 2022- No 4mg 4 mg, Slow Univers (ZOFRAN 06-12 IV Push, ity of (PF)) 06:10: 06:09 [id number], [place] injection 4 26 :26 Starting Medi hank mg on Sat Branch 06/12/22 at 0110, Until 06/13/22 at 0109, Routine, Nausea and Vomiting (N/V), PACU bupivacaine 0 2022- No Caudal Uni vers (preserv 06-1114 Block, ity of free) 19:31: 04:22 ONCE INTRA [place] (SENSORCAIN 00 :55 PROCEDURE, Me dical E MPF) 0.25 Starting Bran ch % (2.5 on Mon mg/mL) 06/11/22 at injection 1431, Until Sat06/11/22 at 2322, Routine, Intra-op ropivacaine 2022- No Epidural, Univers 0.2 % 06-11 CONTINUOUS ity of (NAROPIN 19:31: 04:22 PRN, [place] ()) 00 :55 Starting Medical epidural on Mon Branch infusion 06/11/22 at 1431, Until Sat06/11/22 at 2322, Routine, Intra-op bupivacaine 2022- No Caudal Uni vers (preserv 06-11 Block, ity of free) 19:31: 04:22 ONCE INTRA [place] (SENSORCAIN 00 :55 PROCEDURE, Me dical E MPF) 0.25 Starting Bran ch % (2.5 on Mon mg/mL) 06/11/22 at injection 1431, Until Sat06/11/22 at 2322, Routine, Intra-op ropivacaine 2022- No Epidural, Univers 0.2 % 06-11 CONTINUOUS ity of (NAROPIN 19:31: 04:22 PRN, [place] ()) 00 :55 Starting Medical epidural on Mon Branch infusion 06/11/22 at 1431, Until Sat06/11/22 at 2322, Routine, Intra-op lidocaine-e 2022- No Intravenou Univers pinephrine 06-11 03-14 s, ONCE ity o f (XYLOCAINE 19:30: 04:22 INTRA [place] W/EPINEPHRI 00 :55 PROCEDURE, Me dical NE) 2 Starting Branch %-1:200,000 on Mon injection 06/11/22 at 1430, Until Sat06/11/22 at 2322, Routine, Intra-op lidocaine-e 2022- No Intravenou Univers pinephrine 06-1114 s, ONCE ity o f (XYLOCAINE 19:30: 04:22 INTRA [place] W/EPINEPHRI 00 :55 PROCEDURE, Me dical NE) 2 Starting Branch %-1:200,000 on Mon injection 06/11/22 at 1430, Until Sat06/11/22 at 2322, Routine, Intra-op sodium 2022-2022- No 30mL 30 mL, Univers citrate-cit 06-11 Oral, ity of osorio acid 18:28: 19:09 PRE-PROCED [place] (BICITRA) 15 :00 URE ONCE, Medic al 500-334 1 dose, Branch mg/5 mL Starting solution 30 on Sat mL 06/11/22 at 1328, Until Sat06/11/22 at 1409, Routine, Surgery/Pr ocedure sodium 2022- No 30mL 30 mL, Univers citrate-cit 06-11 Oral, ity of osorio acid 09:22: 04:11 PRE-PROCED [place] (BICITRA) 38 :00 URE ONCE, Medic al 500-334 1 dose, Branch mg/5 mL Starting solution 30 on Sat mL 06/11/22 at 0422, Until Discontinu ed, Routine, Surgery/Pr ocedure [id number] IV 2022- No 1000mL at 1-125 U nivers infusion 06-11 mL/hr, IV ity o f 1,000 mL 09:20: 06:45 Infusion, [place] 50 :53 TITRATE, Medical Starting Branch on Sat06/11/22 at 0420, Until 06/12/22 at 0145, Routine ferrous 2022-0 Yes [id number] 325mg Take 1 Un patrizia sulfate 325 3-01 tablet by ity of mg (65 mg 00:00: mouth [place] iron) 00 the Medical tablet morning Branch and 1 tablet in the evening. ascorbic 2022-0 Yes [id number] 500mg Take 1 U nivers acid, 3-01 tablet by ity of vitamin C, 00:00: mouth in [place] 500 mg 00 the Medical tablet morning Branch and 1 tablet at noon and 1 tablet in the evening. ferrous 2022-0 Yes [id number] 325mg Take 1 Un patrizia sulfate 325 3-01 tablet by ity of mg (65 mg 00:00: mouth [place] iron) 00 the Medical tablet morning Branch and 1 tablet in the evening. ascorbic 2022-0 Yes [id number] 500mg Take 1 U nivers acid, 3-01 tablet by ity of vitamin C, 00:00: mouth in [place] 500 mg 00 the Medical tablet morning Branch and 1 tablet at noon and 1 tablet in the evening. ferrous 2023-0 Yes [id number] 325mg Take 1 Un patrizia sulfate 325 3-01 tablet by ity of mg (65 mg 00:00: [place] iron) 00 the Medical tablet morning Branch and 1 tablet in the evening. ascorbic 2022-0 Yes [id number] 500mg Take 1 U nivers acid, 3-01 tablet by ity of vitamin C, 00:00: mouth in [place] 500 mg 00 the Medical tablet morning Branch and 1 tablet at noon and 1 tablet in the evening. ferrous 2022-0 Yes [id number] 325mg Take 1 Un patrizia sulfate 325 3-01 tablet by ity of mg (65 mg 00:00: mouth [place] iron) 00 the Medical tablet morning Branch and 1 tablet in the evening. ascorbic 2022-0 Yes [id number] 500mg Take 1 U nivers acid, 3-01 tablet by ity of vitamin C, 00:00: mouth in [place] 500 mg 00 the Medical tablet morning Branch and 1 tablet at noon and 1 tablet in the evening. ferrous 2022-0 Yes [id number] 325mg Take 1 Un patrizia sulfate 325 3-01 tablet by ity of mg (65 mg 00:00: mouth [place] iron) 00 the Medical tablet morning Branch and 1 tablet in the evening. ascorbic 2022-0 Yes [id number] 500mg Take 1 U nivers acid, 3-01 tablet by ity of vitamin C, 00:00: mouth in [place] 500 mg 00 the Medical tablet morning Branch and 1 tablet at noon and 1 tablet in the evening. ferrous 2022-0 Yes [id number] 325mg Take 1 Un patrizia sulfate 325 3-01 tablet by ity of mg (65 mg 00:00: [place] iron) 00 the Medical tablet morning Branch and 1 tablet in the evening. ascorbic 2022-0 Yes [id number] 500mg Take 1 U nivers acid, 3-01 tablet by ity of vitamin C, 00:00: mouth in [place] 500 mg 00 the Medical tablet morning Branch and 1 tablet at noon and 1 tablet in the evening. ferrous 2022-0 Yes [id number] 325mg Take 1 Un patrizia sulfate 325 3-01 tablet by ity of mg (65 mg 00:00: [place] iron) 00 the Medical tablet morning Branch and 1 tablet in the evening. ascorbic 2022-0 Yes [id number] 500mg Take 1 U nivers acid, 3-01 tablet by ity of vitamin C, 00:00: mouth in [place] 500 mg 00 the Medical tablet morning Branch and 1 tablet at noon and 1 tablet in the evening. ferrous 202-0 Yes [id number] 325mg Take 1 Un patrizia sulfate 325 3-01 tablet by ity of mg (65 mg 00:00: [place] iron) 00 the Medical tablet morning Branch and 1 tablet in the evening. ascorbic 2022-0 Yes [id number] 500mg Take 1 U nivers acid, 3-01 tablet by ity of vitamin C, 00:00: mouth in [place] 500 mg 00 the Medical tablet morning Branch and 1 tablet at noon and 1 tablet in the evening. ferrous 2022-0 Yes [id number] 325mg Take 1 Un patrizia sulfate 325 3-01 tablet by ity of mg (65 mg 00:00: [place] iron) 00 the Medical tablet morning Branch and 1 tablet in the evening. ascorbic 2022-0 Yes [id number] 500mg Take 1 U nivers acid, 3-01 tablet by ity of vitamin C, 00:00: mouth in [place] 500 mg 00 the Medical tablet morning Branch and 1 tablet at noon and 1 tablet in the evening. ferrous 2022-0 Yes [id number] 325mg Take 1 Un patrizia sulfate 325 3-01 tablet by ity of mg (65 mg 00:00: [place] iron) 00 the Medical tablet morning Branch and 1 tablet in the evening. ascorbic 2022-0 Yes [id number] 500mg Take 1 U nivers acid, 3-01 tablet by ity of vitamin C, 00:00: mouth in [place] 500 mg 00 the Medical tablet morning Branch and 1 tablet at noon and 1 tablet in the evening. ferrous 202-0 Yes [id number] 325mg Take 1 Un patrizia sulfate 325 3-01 tablet by ity of mg (65 mg 00:00: [place] iron) 00 the Medical tablet morning Branch and 1 tablet in the evening. ascorbic 2022-0 Yes [id number] 500mg Take 1 U nivers acid, 3-01 tablet by ity of vitamin C, 00:00: mouth in [place] as 500 mg 00 the Medical tablet morning Branch and 1 tablet at noon and 1 tablet in the evening. ferrous 2023-0 Yes [id number] 325mg Take 1 Un patrizia sulfate 325 3-01 tablet by ity of mg (65 mg 00:00: mouth in [facility] s iron) 00 the Medical tablet morning Branch and 1 tablet in the evening. ascorbic 2023-0 Yes [id number] 500mg Take 1 U nivers acid, 3-01 tablet by ity of vitamin C, 00:00: mouth in [facility] as 500 mg 00 the Medical tablet morning Branch and 1 tablet at noon and 1 tablet in the evening. acyclovir 2023-0 Yes [id number] 400mg Take 1 [facility] 400 mg 2-21 tablet by ity of tablet 00:00: mouth in [place] 00 the Medical morning Branch and 1 tablet at noon and 1 tablet in the evening. acyclovir 2023-0 Yes [id number] 400mg Take 1 [facility] 400 mg 2-21 tablet by ity of tablet 00:00: mouth in [place] 00 the Medical morning Branch and 1 tablet at noon and 1 tablet in the evening. acyclovir 2023-0 Yes [id number] 400mg Take 1 [facility] 400 mg 2-21 tablet by ity of tablet 00:00: mouth in [place] 00 the Medical morning Branch and 1 tablet at noon and 1 tablet in the evening. acyclovir 2023-0 Yes [id number] 400mg Take 1 [facility] 400 mg 2-21 tablet by ity of tablet 00:00: mouth in [place] 00 the Medical morning Branch and 1 tablet at noon and 1 tablet in the evening. acyclovir 2023-0 Yes [id number] 400mg Take 1 [facility] 400 mg 2-21 tablet by ity of tablet 00:00: mouth in [place] 00 the Medical morning Branch and 1 tablet at noon and 1 tablet in the evening. acyclovir 2023-0 Yes [id number] 400mg Take 1 [facility] 400 mg 2-21 tablet by ity of tablet 00:00: mouth in [place] 00 the Medical morning Branch and 1 tablet at noon and 1 tablet in the evening. acyclovir 2023-0 Yes [id number] 400mg Take 1 [facility] 400 mg 2-21 tablet by ity of tablet 00:00: mouth in [place] 00 the Medical morning Branch and 1 tablet at noon and 1 tablet in the evening. acyclovir 2023-0 Yes [id number] 400mg Take 1 [facility] 400 mg 2-21 tablet by ity of tablet 00:00: mouth in [place] 00 the Medical morning Branch and 1 tablet at noon and 1 tablet in the evening. acyclovir 2023-0 Yes [id number] 400mg Take 1 [facility] 400 mg 2-21 tablet by ity of tablet 00:00: mouth in [place] 00 the [facility] morning [place] and 1 tablet at noon and 1 tablet in the evening. acyclovir 2023-0 Yes [id number] 400mg Take 1 Univers 400 mg 2-21 tablet by ity of tablet 00:00: mouth in [place] 00 the Medical morning Branch and 1 tablet at noon and 1 tablet in the evening. acyclovir 2023-0 Yes [id number] 400mg Take 1 [facility] 400 mg 2-21 tablet by ity of tablet 00:00: mouth in [place] [address] the [facility] morning Margaret and 1 tablet at noon and 1 tablet in the evening. acyclovir 2023-0 Yes [id number] 400mg Take 1 [facility] 400 mg 2-21 tablet by ity of tablet 00:00: mouth in [place] [address] the [facility] morning [place] and 1 tablet at noon and 1 tablet in the evening. acyclovir 2023-0 Yes [id number] 400mg Take 1 [facility] 400 mg 2-21 tablet by ity of tablet 00:00: mouth in [place] [address] the [facility] morning [place] and 1 tablet at noon and 1 tablet in the evening. acyclovir 2023-0 Yes [id number] 400mg Take 1 [facility] 400 mg 2-21 tablet by ity of tablet 00:00: mouth in [place] [address] the [facility] morning [place] and 1 tablet at noon and 1 tablet in the evening. acyclovir 2023-0 Yes [id number] 400mg Take 1 [facility] 400 mg 2-21 tablet by ity of tablet 00:00: mouth in [place] [address] the [facility] morning [place] and 1 tablet at noon and 1 tablet in the evening. acyclovir 2023-0 Yes [id number] 400mg Take 1 Univers 400 mg 2-21 tablet by ity of tablet 00:00: mouth in [place] [address] the [facility] and 1 tablet at noon and 1 tablet in the evening. Iron Fum & 2023-0 Yes [id number] 1{capsu Take 1 Univers P-FA-Vit B 1-11 le} capsule by ity of & C No.9 00:00: mouth [place] (INTEGRA 00 daily. Medical PLUS) 125 Branch mg iron- 1 mg Cap Iron Fum & 2023-0 Yes [id number] 1{capsu Take 1 Univers P-FA-Vit B 1-11 le} capsule by ity of & C No.9 00:00: mouth [place] (INTEGRA daily. Medical PLUS) 125 Branch mg iron- 1 mg Cap Iron Fum & 2023-0 Yes [id number] 1{capsu Take 1 Univers P-FA-Vit B 1-11 le} capsule by ity of & C No.9 00:00: mouth [place] (INTEGRA daily. Medical PLUS) 125 Branch mg iron- 1 mg Cap Iron Fum & 2023-0 Yes [id number] 1{capsu Take 1 Univers P-FA-Vit B 1-11 le} capsule by ity of & C No.9 00:00: mouth [place] (INTEGRA daily. Medical PLUS) 125 Branch mg iron- 1 mg Cap Iron Fum & 3-0 Yes [id number] 1{capsu Take 1 Univers P-FA-Vit B 1-11 le} capsule by [employer] & C No.9 00:00: mouth [place] (INTEGRA daily. Medical PLUS) 125 Branch mg iron- 1 mg Cap Iron Fum & 3-0 Yes [id number] 1{capsu Take 1 Univers P-FA-Vit B 1-11 le} capsule by ity [employer] & C No.9 00:00: mouth [place] (INTEGRA daily. Medical PLUS) 125 Branch mg iron- 1 mg Cap Iron Fum & 3-0 Yes [id number] 1{capsu Take 1 Univers P-FA-Vit B 1-11 le} capsule by ity of & C No.9 00:00: mouth [place] (INTEGRA daily. Medical PLUS) 125 Branch mg iron- 1 mg Cap Iron Fum & 2023-0 Yes [id number] 1{capsu Take 1 Univers P-FA-Vit B 1-11 le} capsule by ity of & C No.9 00:00: mouth [place] (INTEGRA daily. Medical PLUS) 125 Branch mg iron- 1 mg Cap Iron Fum & 2023-0 Yes [id number] 1{capsu Take 1 Univers P-FA-Vit B 1-11 le} capsule by ity of & C No.9 00:00: mouth [place] (INTEGRA daily. Medical PLUS) 125 Branch mg iron- 1 mg Cap Iron Fum & 3-0 Yes [id number] 1{capsu Take 1 Univers P-FA-Vit B 1-11 le} capsule by ity of & C No.9 00:00: mouth [place] (INTEGRA daily. Medical PLUS) 125 Branch mg iron- 1 mg Cap Iron Fum & 3-0 Yes [id number] 1{capsu Take 1 Univers P-FA-Vit B 1-11 le} capsule by ity of & C No.9 00:00: mouth [place] (INTEGRA 00 daily. Medical PLUS) 125 Branch mg iron- 1 mg Cap Iron Fum & 3-0 Yes [id number] 1{capsu Take 1 Univers P-FA-Vit B 1-11 le} capsule by ity of & C No.9 00:00: mouth [place] (INTEGRA daily. Medical PLUS) 125 Branch mg iron- 1 mg Cap Iron Fum & 3-0 Yes [id number] 1{capsu Take 1 Univers P-FA-Vit B 1-11 le} capsule by ity of & C No.9 00:00: mouth [place] (INTEGRA 00 daily. Medical PLUS) 125 Branch mg iron- 1 mg Cap Iron Fum & 2022-0 Yes [id number] 1{capsu Take 1 Univers P-FA-Vit B 1-11 le} capsule by ity of & C No.9 00:00: mouth [place] (INTEGRA daily. Medical PLUS) 125 Branch mg iron- 1 mg Cap Iron Fum & 3-0 Yes [id number] 1{capsu Take 1 Univers P-FA-Vit B 1-11 le} capsule by ity of & C No.9 00:00: mouth [place] (INTEGRA 00 daily. Medical PLUS) 125 Branch mg iron- 1 mg Cap Iron Fum & 3-0 3- No [id number] 1{capsu Take 1 Univers P-FA-Vit B 1-11 -15 le} capsule by it y of & C No.9 00:00: 00:00 mouth [place] (INTEGRA 00 :00 daily. Medical PLUS) 125 Branch mg iron- 1 mg Cap Iron Fum & 3-0 3- No [id number] 1{capsu Take 1 Univers P-FA-Vit B 1-11 -15 le} capsule by it y of & C No.9 00:00: 00:00 mouth [place] (INTEGRA 00 :00 daily. Medical PLUS) 125 Branch mg iron- 1 mg Cap valACYclovi 2021-04- No [id number] 500mg Take 1 Univers r 500 mg 04-05 tablet by ity o f tablet 00:00: 05:59 mouth in [place] 00 :00 the Medical morning Branch and 1 tablet in the evening. Do all this for 3 days. valACYclovi 2021-04- No [id number] 500mg Take 1 Univers r 500 mg 04-05 tablet by ity o f tablet 00:00: 05:59 mouth in [place] 00 :00 the Medical morning Branch and 1 tablet in the evening. Do all this for 3 days. valACYclovi 2021-04- No [id number] 500mg Take 1 Univers r 500 mg 04-05 tablet by ity o f tablet 00:00: 05:59 mouth in [place] 00 :00 the Medical morning Branch and 1 tablet in the evening. Do all this for 3 days. valACYclovi 2021-04- No [id number] 500mg Take 1 Univers r 500 mg 04-05 tablet by ity o f tablet 00:00: 05:59 mouth in [place] 00 :00 the Medical morning Branch and 1 tablet in the evening. Do all this for 3 days. acyclovir 2021-04- No [id number] 400mg Take 1 Univers 400 mg 04-01 tablet by ity of tablet 00:00: 05:59 mouth in [place] 00 :00 the Medical morning Branch and 1 tablet at noon and 1 tablet in the evening. Do all this for 5 days. acyclovir 2021-04- No [id number] 400mg Take 1 [facility] 400 mg 04-01 tablet by ity of tablet 00:00: 05:59 mouth in [place] 00 :00 the Medical morning Branch and 1 tablet at noon and 1 tablet in the evening. Do all this for 5 days. acyclovir 2021-04- No [id number] 400mg Take 1 [facility] 400 mg 04-01 tablet by ity of tablet 00:00: 00:00 mouth in [place] 00 :00 the Medical morning Branch and 1 tablet at noon and 1 tablet in the evening. Do all this for 5 days. PNV 67-iron 2021-0 Yes [id number] 1{each} Take 1 Univers ps-folate 9-12 Each by ity of no.1-dha 00:00: mouth [place] (VITAFOL 00 daily. Medical ULTRA) 29 Branch mg iron- 1 mg-200 mg Cap PNV 67-iron 2021-0 Yes [id number] 1{each} Take 1 [facility] ps-folate 9-12 Each by ity of no.1-dha 00:00: mouth [place] (VITAFOL 00 daily. Medical ULTRA) 29 Branch mg iron- 1 mg-200 mg Cap PNV 67-iron 2021-0 Yes [id number] 1{each} Take 1 Univers ps-folate 9-12 Each by ity of no.1-dha 00:00: mouth [place] (VITAFOL 00 daily. Medical ULTRA) 29 Branch mg iron- 1 mg-200 mg Cap PNV 67-iron 2-0 Yes [id number] 1{each} Take 1 Univers ps-folate 9-12 Each by ity of no.1-dha 00:00: mouth [place] (VITAFOL 00 daily. Medical ULTRA) 29 Branch mg iron- 1 mg-200 mg Cap PNV 67-iron 2021-0 Yes [id number] 1{each} Take 1 Univers ps-folate 9-12 Each by ity of no.1-dha 00:00: mouth [place] (VITAFOL 00 daily. Medical ULTRA) 29 Branch mg iron- 1 mg-200 mg Cap PNV 67-iron 2021-0 Yes [id number] 1{each} Take 1 Univers ps-folate 9-12 Each by ity of no.1-dha 00:00: mouth [place] (VITAFOL 00 daily. Medical ULTRA) 29 Branch mg iron- 1 mg-200 mg Cap PNV 67-iron 2021-0 Yes [id number] 1{each} Take 1 Univers ps-folate 9-12 Each by ity of no.1-dha 00:00: mouth [place] (VITAFOL 00 daily. Medical ULTRA) 29 Branch mg iron- 1 mg-200 mg Cap PNV 67-iron 2-0 Yes [id number] 1{each} Take 1 Univers ps-folate 9-12 Each by ity of no.1-dha 00:00: mouth [place] (VITAFOL 00 daily. Medical ULTRA) 29 Branch mg iron- 1 mg-200 mg Cap PNV 67-iron 2021-0 Yes [id number] 1{each} Take 1 Univers ps-folate 9-12 Each by ity of no.1-dha 00:00: mouth [place] (VITAFOL 00 daily. Medical ULTRA) 29 Branch mg iron- 1 mg-200 mg Cap PNV 67-iron 2-0 Yes [id number] 1{each} Take 1 Univers ps-folate 9-12 Each by ity of no.1-dha 00:00: mouth [place] (VITAFOL 00 daily. Medical ULTRA) 29 Branch mg iron- 1 mg-200 mg Cap PNV 67-iron 2-0 Yes [id number] 1{each} Take 1 [facility] ps-folate 9-12 Each by ity of no.1-dha 00:00: mouth [place] (VITAFOL 00 daily. Medical ULTRA) 29 Branch mg iron- 1 mg-200 mg Cap PNV 67-iron 2-0 Yes [id number] 1{each} Take 1 Univers ps-folate 9-12 Each by ity of no.1-dha 00:00: mouth [place] (VITAFOL 00 daily. Medical ULTRA) 29 Branch mg iron- 1 mg-200 mg Cap PNV 67-iron 2021-0 Yes [id number] 1{each} Take 1 [facility] ps-folate 9-12 Each by ity of no.1-dha 00:00: mouth [place] (VITAFOL 00 daily. Medical ULTRA) 29 Branch mg iron- 1 mg-200 mg Cap PNV 67-iron 2-0 Yes [id number] 1{each} Take 1 Univers ps-folate 9-12 Each by ity of no.1-dha 00:00: mouth [place] (VITAFOL 00 daily. Medical ULTRA) 29 Branch mg iron- 1 mg-200 mg Cap PNV 67-iron 2021-0 Yes [id number] 1{each} Take 1 Univers ps-folate 9-12 Each by ity of no.1-dha 00:00: mouth [place] (VITAFOL 00 daily. Medical ULTRA) 29 Branch mg iron- 1 mg-200 mg Cap PNV 67-iron 2-0 Yes [id number] 1{each} Take 1 Univers ps-folate 9-12 Each by ity of no.1-dha 00:00: mouth [place] (VITAFOL 00 daily. Medical ULTRA) 29 Branch mg iron- 1 mg-200 mg Cap PNV 67-iron 2-0 Yes [id number] 1{each} Take 1 Univers ps-folate 9-12 Each by ity of no.1-dha 00:00: mouth [place] (VITAFOL 00 daily. Medical ULTRA) 29 Branch mg iron- 1 mg-200 mg Cap PNV 67-iron 2-0 Yes [id number] 1{each} Take 1 [facility] ps-folate 9-12 Each by ity of no.1-dha 00:00: mouth [place] (VITAFOL 00 daily. Medical ULTRA) 29 Branch mg iron- 1 mg-200 mg Cap PNV 67-iron 2-0 Yes [id number] 1{each} Take 1 Univers ps-folate 9-12 Each by ity of no.1-dha 00:00: mouth [place] (VITAFOL 00 daily. Medical ULTRA) 29 Branch mg iron- 1 mg-200 mg Cap PNV 67-iron 2-0 Yes [id number] 1{each} Take 1 [facility] ps-folate 9-12 Each by ity of no.1-dha 00:00: mouth [place] (VITAFOL 00 daily. Medical ULTRA) 29 Branch mg iron- 1 mg-200 mg Cap PNV 67-iron 2-0 Yes [id number] 1{each} Take 1 Univers ps-folate 9-12 Each by ity of no.1-dha 00:00: mouth [place] (VITAFOL 00 daily. Medical ULTRA) 29 Branch mg iron- 1 mg-200 mg Cap PNV 67-iron 2-0 Yes [id number] 1{each} Take 1 Univers ps-folate 9-12 Each by ity of no.1-dha 00:00: mouth [place] (VITAFOL 00 daily. Medical ULTRA) 29 Branch mg iron- 1 mg-200 mg Cap PNV 67-iron 2-0 Yes [id number] 1{each} Take 1 Univers ps-folate 9-12 Each by ity of no.1-dha 00:00: mouth [place] (VITAFOL 00 daily. Medical ULTRA) 29 Branch mg iron- 1 mg-200 mg Cap PNV 67-iron 2022-0 Yes [id number] 1{each} Take 1 Univers ps-folate 9-12 Each by ity of no.1-dha 00:00: mouth [place] (VITAFOL 00 daily. Medical ULTRA) 29 Branch mg iron- 1 mg-200 mg Cap PNV 67-iron 2-0 Yes [id number] 1{each} Take 1 Univers ps-folate 9-12 Each by ity of no.1-dha 00:00: mouth [place] (VITAFOL 00 daily. Medical ULTRA) 29 Branch mg iron- 1 mg-200 mg Cap PNV 67-iron 2-0 Yes [id number] 1{each} Take 1 Univers ps-folate 9-12 Each by ity of no.1-dha 00:00: mouth [place] (VITAFOL 00 daily. Medical ULTRA) 29 Branch mg iron- 1 mg-200 mg Cap PNV 67-iron 2-0 Yes [id number] 1{each} Take 1 Univers ps-folate 9-12 Each by ity of no.1-dha 00:00: mouth [place] (VITAFOL 00 daily. Medical ULTRA) 29 Branch mg iron- 1 mg-200 mg Cap PNV 67-iron 2-0 Yes [id number] 1{each} Take 1 Univers ps-folate 9-12 Each by ity of no.1-dha 00:00: mouth [place] (VITAFOL 00 daily. Medical ULTRA) 29 Branch mg iron- 1 mg-200 mg Cap PNV 67-iron 2-0 Yes [id number] 1{each} Take 1 Univers ps-folate 9-12 Each by ity of no.1-dha 00:00: mouth [place] (VITAFOL 00 daily. Medical ULTRA) 29 Branch mg iron- 1 mg-200 mg Cap PNV 67-iron 2-0 Yes [id number] 1{each} Take 1 Univers ps-folate 9-12 Each by ity of no.1-dha 00:00: mouth [place] (VITAFOL 00 daily. Medical ULTRA) 29 Branch mg iron- 1 mg-200 mg Cap PNV 67-iron 2-0 Yes [id number] 1{each} Take 1 Univers ps-folate 9-12 Each by ity of no.1-dha 00:00: mouth [place] (VITAFOL 00 daily. Medical ULTRA) 29 Branch mg iron- 1 mg-200 mg Cap PNV 67-iron 2022-0 Yes [id number] 1{each} Take 1 Univers ps-folate 9-12 Each by ity of no.1-dha 00:00: mouth [place] (VITAFOL 00 daily. Medical ULTRA) 29 Branch mg iron- 1 mg-200 mg Cap PNV 67-iron 2-0 Yes [id number] 1{each} Take 1 [facility] ps-folate 9-12 Each by ity of no.1-dha 00:00: mouth [place] (VITAFOL 00 daily. Medical ULTRA) 29 Branch mg iron- 1 mg-200 mg Cap PNV 67-iron 2022-0 Yes [id number] 1{each} Take 1 [facility] ps-folate 9-12 Each by ity of no.1-dha 00:00: mouth [place] (VITAFOL 00 daily. Medical ULTRA) 29 Branch mg iron- 1 mg-200 mg Cap PNV 67-iron 2-0 Yes [id number] 1{each} Take 1 [facility] ps-folate 9-12 Each by ity of no.1-dha 00:00: mouth [place] (VITAFOL 00 daily. Medical ULTRA) 29 Branch mg iron- 1 mg-200 mg Cap PNV 67-iron 2-0 Yes [id number] 1{each} Take 1 [facility] ps-folate 9-12 Each by ity of no.1-dha 00:00: mouth [place] (VITAFOL 00 daily. Medical ULTRA) 29 Branch mg iron- 1 mg-200 mg Cap PNV 67-iron 2-0 Yes [id number] 1{each} Take 1 [facility] ps-folate 9-12 Each by ity of no.1-dha 00:00: mouth [place] (VITAFOL 00 daily. Medical ULTRA) 29 Branch mg iron- 1 mg-200 mg Cap PNV 67-iron 2-0 Yes [id number] 1{each} Take 1 [facility] ps-folate 9-12 Each by ity of no.1-dha 00:00: mouth [place] (VITAFOL 00 daily. Medical ULTRA) 29 Branch mg iron- 1 mg-200 mg Cap PNV 67-iron 2022-0 Yes [id number] 1{each} Take 1 [facility] ps-folate 9-12 Each by ity of no.1-dha 00:00: mouth [place] (VITAFOL 00 daily. Medical ULTRA) 29 Branch mg iron- 1 mg-200 mg Cap PNV 67-iron 2022-0 Yes [id number] 1{each} Take 1 [facility] ps-folate 9-12 Each by ity of no.1-dha 00:00: mouth [place] (VITAFOL 00 daily. Medical ULTRA) 29 Branch mg iron- 1 mg-200 mg Cap PNV 67-iron Yes [id number] 1{each} Take 1 [facility] ps-folate 9-12 Each by ity of no.1-dha 00:00: mouth [place] (VITAFOL 00 daily. Medical ULTRA) 29 Branch mg iron- 1 mg-200 mg Cap PNV 67-iron Yes [id number] 1{each} Take 1 [facility] ps-folate 9-12 Each by ity of no.1-dha 00:00: mouth [place] (VITAFOL 00 daily. Medical ULTRA) 29 Branch mg iron- 1 mg-200 mg Cap PNV 67-iron Yes [id number] 1{each} Take 1 [facility] ps-folate 9-12 Each by ity of no.1-dha 00:00: mouth [place] (VITAFOL 00 daily. Medical ULTRA) 29 Branch mg iron- 1 mg-200 mg Cap PNV 67-iron Yes [id number] 1{each} Take 1 [facility] ps-folate 9-12 Each by ity of no.1-dha 00:00: mouth [place] (VITAFOL 00 daily. Medical ULTRA) 29 Branch mg iron- 1 mg-200 mg Cap Yes [id number] 1{tbl} Take 1 U nivers vit 9-09 tablet by ity of no.130-iron 00:00: mouth in [place] -folic 00 the Medical ( morning. Branch VITAMIN) Yes [id number] 1{tbl} Take 1 U nivers vit 9-09 tablet by ity of no.130-iron 00:00: mouth in [place] -folic 00 the Medical ( morning. Branch VITAMIN) Yes [id number] 1{tbl} Take 1 U nivers vit 9-09 tablet by ity of no.130-iron 00:00: mouth in [place] -folic 00 the Medical ( morning. Branch VITAMIN) Yes [id number] 1{tbl} Take 1 U nivers vit 9-09 tablet by ity of no.130-iron 00:00: mouth in [place] -folic 00 the Medical ( morning. Branch VITAMIN) Yes [id number] 1{tbl} Take 1 U nivers vit 9-09 tablet by ity of no.130-iron 00:00: mouth in [place] -folic 00 the Medical ( morning. Branch VITAMIN) Yes [id number] 1{tbl} Take 1 U nivers vit 9-09 tablet by ity of no.130-iron 00:00: mouth in [place] -folic 00 the Medical ( morning. Branch VITAMIN) Yes [id number] 1{tbl} Take 1 U nivers vit 9-09 tablet by ity of no.130-iron 00:00: mouth in [place] -folic 00 the Medical ( morning. Branch VITAMIN) Yes [id number] 1{tbl} Take 1 U nivers vit 9-09 tablet by ity of no.130-iron 00:00: mouth in [place] -folic 00 the Medical ( morning. Branch VITAMIN) Yes [id number] 1{tbl} Take 1 U nivers vit 9-09 tablet by ity of no.130-iron 00:00: mouth in [place] -folic 00 the Medical ( morning. Branch VITAMIN) Yes [id number] 1{tbl} Take 1 U nivers vit 9-09 tablet by ity of no.130-iron 00:00: mouth in [place] -folic 00 the Medical ( morning. Branch VITAMIN) Yes [id number] 1{tbl} Take 1 U nivers vit 9-09 tablet by ity of no.130-iron 00:00: mouth in [place] -folic 00 the Medical ( morning. Branch VITAMIN) 0 Yes [id number] 1{tbl} Take 1 U nivers vit 9-09 tablet by ity of no.130-iron 00:00: mouth in [place] -folic 00 the Medical ( morning. Branch VITAMIN) 0 Yes [id number] 1{tbl} Take 1 U nivers vit 9-09 tablet by ity of no.130-iron 00:00: mouth in [place] -folic 00 the Medical ( morning. Branch VITAMIN) Yes [id number] 1{tbl} Take 1 U nivers vit 9-09 tablet by ity of no.130-iron 00:00: mouth in [place] -folic 00 the Medical ( morning. Branch VITAMIN) Yes [id number] 1{tbl} Take 1 U nivers vit 9-09 tablet by ity of no.130-iron 00:00: mouth in [place] -folic 00 the Medical ( morning. Branch VITAMIN) Yes [id number] 1{tbl} Take 1 U nivers vit 9-09 tablet by ity of no.130-iron 00:00: mouth in [place] -folic 00 the Medical ( morning. Branch VITAMIN) Yes [id number] 1{tbl} Take 1 U nivers vit 9-09 tablet by ity of no.130-iron 00:00: mouth in [place] -folic 00 the Medical ( morning. Branch VITAMIN) Yes [id number] 1{tbl} Take 1 U nivers vit 9-09 tablet by ity of no.130-iron 00:00: mouth in [place] -folic 00 the Medical ( morning. Branch VITAMIN) Yes [id number] 1{tbl} Take 1 U nivers vit 9-09 tablet by ity of no.130-iron 00:00: mouth in [place] -folic 00 the Medical ( morning. Branch VITAMIN) Yes [id number] 1{tbl} Take 1 U nivers vit 9-09 tablet by ity of no.130-iron 00:00: mouth in [place] -folic 00 the Medical ( morning. Branch VITAMIN) 0 Yes [id number] 1{tbl} Take 1 U nivers vit 9-09 tablet by ity of no.130-iron 00:00: mouth in [place] -folic 00 the Medical ( morning. Branch VITAMIN) 0 Yes [id number] 1{tbl} Take 1 U nivers vit 9-09 tablet by ity of no.130-iron 00:00: mouth in [place] -folic 00 the Medical ( morning. Branch VITAMIN) 0 Yes [id number] 1{tbl} Take 1 U nivers vit 9-09 tablet by ity of no.130-iron 00:00: mouth in [place] -folic 00 the Medical ( morning. Branch VITAMIN) 3- No [id number] 1{tbl} Take 1 [facility] vit 12-08 tablet by ity of no.130-iron 00:00: 00:00 mouth in [place] -folic 00 :00 the Medical ( morning. Branch VITAMIN) Immunizations Ordered Filled Date Status Comments Source Immunization Name Immunization Name TD 2022-04-10 Completed [facility] 00:00[facility]00 [facility] TDAP 2022-04-10 Completed [facility] 00:00:00 [facility] TDAP 2022-04-10 Completed [facility] 00:00:00 [facility] TDAP 2022-04-10 Completed [facility] 00:00:00 [facility] TDAP 2022-04-10 Completed [facility] of 00:00:00 [facility] TDAP 2022-04-10 Completed [facility] of 00:00:00 [facility] TDAP 2022-04-10 Completed [facility] of 00:00:00 [facility] TDAP 2022-04-10 Completed [facility] of 00:00:00 [facility] TDAP 2022-04-10 Completed [facility] of 00:00:00 [facility] TDAP 2022-04-10 Completed [facility] of 00[facility]00:00 [facility] TDAP 2022-04-10 Completed [facility] of 00:00:00 [facility] TDAP 2022-04-10 Completed [facility] of 00:00:00 [facility] TDAP 2022-04-10 Completed [facility] of 00:00:00 [facility] TDAP 2022-04-10 Completed [facility] of 00:00:00 [facility] TDAP 2022-04-10 Completed [facility] of 00:00:00 [facility] TDAP 2022-04-10 Completed [facility] of 00:00:00 [facility] TDAP 2022-04-10 Completed [facility] of 00:00:00 [facility] TDAP 2022-04-10 Completed [facility] of 00:00:00 [facility] TDAP 2022-04-10 Completed [facility] of 00:00:00 [facility] TDAP 2022-04-10 Completed [facility] of 00:00:00 [facility] TDAP 2022-04-10 Completed [facility] of 00:00:00 [facility] Varicella 2019-06-11 Completed University of (varivax)(chicken 00:00:00 [place] [facility] pox) Branch Varicella 2019-06-11 Completed [facility] of (varivax)(chicken 00:00:00 [place] [facility] pox) Branch Varicella 2019-06-11 Completed [facility] of (varivax)(chicken 00:00:00 [place] [facility] pox) Branch Varicella 2019-06-11 Completed [facility] of (varivax)(chicken 00:00:00 [place] [facility] pox) Branch Varicella 2019-06-11 Completed [facility] of (varivax)(chicken 00:00:00 [place] [facility] pox) Branch Varicella 2019-06-11 Completed [facility] of (varivax)(chicken 00:00:00 [place] [facility] pox) Branch Varicella 2019-06-11 Completed [facility] of (varivax)(chicken 00:00:00 [place] [facility] pox) Branch Varicella 2019-06-11 Completed [facility] of (varivax)(chicken 00:00:00 [place] [facility] pox) Branch Varicella 2019-06-11 Completed [facility] of (varivax)(chicken 00:00:00 [place] [facility] pox) Branch Varicella 2019-06-11 Completed [facility] of (varivax)(chicken 00:00:00 [place] [facility] pox) Branch Varicella 2019-06-11 Completed [facility] of (varivax)(chicken 00:00:00 [place] [facility] pox) Branch Varicella 2019-06-11 Completed [facility] of (varivax)(chicken 00:00:00 [place] [facility] pox) Branch Varicella 2019-06-11 Completed [facility] of (varivax)(chicken 00:00:00 [place] [facility] pox) Branch Varicella 2019-06-11 Completed [facility] of (varivax)(chicken 00:00:00 [place] [facility] pox) Branch Varicella 2019-06-11 Completed [facility] of (varivax)(chicken 00:00:00 [place] [facility] pox) Branch Varicella 2019-06-11 Completed [facility] of (varivax)(chicken 00:00:00 [place] [facility] pox) Branch Varicella 2019-06-11 Completed [facility] of (varivax)(chicken 00:00:00 [place] [facility] pox) Branch Varicella 2019-06-11 Completed [facility] of (varivax)(chicken 00:00:00 [place] [facility] pox) Branch Varicella 2019-06-11 Completed [facility] of (varivax)(chicken 00:00:00 [place] [facility] pox) Branch Varicella 2019-06-11 Completed [facility] of (varivax)(chicken 00:00:00 [place] [facility] pox) Branch Varicella 2019-06-11 Completed [facility] of (varivax)(chicken 00:00:00 [place] [facility] pox) Branch Varicella 2019-06-11 Completed [facility] of (varivax)(chicken 00:00:00 [place] [facility] pox) Branch Varicella 2019-06-11 Completed [facility] of (varivax)(chicken 00:00:00 [place] [facility] pox) Branch Varicella 2019-06-11 Completed [facility] of (varivax)(chicken 00:00:00 [place] [facility] pox) Branch Varicella 2019-06-11 Completed [facility] ([facility]ivax[facility] [place] [facility] Varicella 2019-06-11 Completed [facility] ([facility]ax[facility] 00:[facility] [place] [facility] Varicella 2019-06-11 Completed [facility] (varivax[facility] 00:00:[facility] [place] [facility] Varicella 2019-06-11 Completed [facility] (varivax[facility]icken 00:00:[facility] [place] [facility] Varicella 2019-06-11 Completed [facility] (varivax)(chicken 00:00:00 [place] [facility] Varicella 2019-06-11 Completed [facility] (varivax)([facility]icken 00:00:[facility] [place] [facility] Varicella 2019-06-11 Completed [facility] (varivax)(chicken 00:00:00 [place] [facility] Varicella 2019-06-11 Completed [facility] (varivax)(chicken 00:00:[facility] [place] [facility] Varicella 2019-06-11 Completed [facility] (varivax)([facility]icken 00:00:00 [place] [facility] Varicella 2019-06-11 Completed [facility] (varivax)([facility]icken 00:00:00 [place] [facility] Varicella 2019-06-11 Completed [facility] (varivax)(chicken 00:00:00 [place] [facility] Varicella 2019-06-11 Completed [facility] (varivax)(chicken 00:00:00 [place] [facility] Varicella 2019-06-11 Completed [facility] (varivax)(chicken 00:00:00 [place] [facility] Varicella 2019-06-11 Completed [facility] (varivax)(chicken 00:00:00 [place] [facility] Varicella 2019-06-11 Completed [facility] (varivax)(chicken 00:00:00 [place] [facility] Varicella 2019-06-11 Completed [facility] (varivax)(chicken 00:00:00 [place] [facility] Varicella 2019-06-11 Completed [facility] (varivax)(chicken 00:00:00 [place] [facility] Varicella 2019-06-11 Completed [facility] (varivax)(chicken 00:00:00 [place] [facility] Varicella 2019-06-11 Completed [facility] (varivax)(chicken 00:00:00 [place] [facility] Varicella 2019-06-11 Completed [facility] (varivax)([facility]icken 00:00:00 [place] [facility] TDAP 2019-03-30 Completed [facility] 00:00:00 [facility] Influenza Virus 2019-03-30 Completed Universit y of [facility] .5 mL 00:00:00 [facility] 6+ MO Margaret TDAP 2019-03-30 Completed [facility] of 00:00:00 [facility] Influenza Virus 2019-03-30 Completed Universit y of [facility] .5 mL 00:00:00 [facility] IM 6+ MO Margaret TDAP 2019-03-30 Completed [facility] of 00:00:00 [facility] Influenza Virus 2019-03-30 Completed Universit y of [facility] .5 mL 00:00:00 [facility] IM 6+ MO Margaret TDAP 2019-03-30 Completed [facility] of 00:00:00 [facility] Influenza Virus 2019-03-30 Completed Universit y of [facility] .5 mL 00:00:00 [facility] IM 6+ MO Margaret TDAP 2019-03-30 Completed [facility] of 00:00:00 [facility] Influenza Virus 2019-03-30 Completed Universit y of [facility] .5 mL 00:00:00 [facility] IM 6+ MO Margaret TDAP 2019-03-30 Completed [facility] 00:00:00 [facility] Influenza Virus 2019-03-30 Completed [facility]it y of [facility] .5 mL 00:00:00 [facility] 6+ MO [facility] TDAP 2019-03-30 Completed [facility] 00:00:00 [facility] Influenza Virus 2019-03-30 Completed Universit y of [facility] .5 mL 00:00:00 [facility] 6+ MO [facility] TDAP 2019-03-30 Completed [facility] of 00:00:00 [facility] Influenza Virus 2019-03-30 Completed Universit y of [facility] .5 mL 00:00:00 [facility] 6+ MO [facility] TDAP 2019-03-30 Completed [facility] of 00:00:00 [facility] Influenza Virus 2019-03-30 Completed [facility]it y of [facility] .5 mL 00:00:00 [facility] IM 6+ MO [facility] TDAP 2019-03-30 Completed [facility] 00:00:00 [facility] Influenza Virus 2019-03-30 Completed [facility]it y of [facility] .5 mL 00:00:00 [facility] 6+ MO Branch TDAP 2019-03-30 Completed [facility] of 00:00:00 [facility] Influenza Virus 2019-03-30 Completed Universit y of [facility] .5 mL 00:00:00 [facility] 6+ MO Branch TDAP 2019-03-30 Completed [facility] of 00:00:00 [facility] Influenza Virus 2019-03-30 Completed Universit y of [facility] .5 mL 00:00:00 [facility] 6+ MO Margaret TDAP 2019-03-30 Completed [facility] of 00:00:00 [facility] Influenza Virus 2019-03-30 Completed Universit y of [facility] .5 mL 00:00:00 [facility] 6+ MO Branch TDAP 2019-03-30 Completed [facility] of 00:00:00 [facility] Influenza Virus 2019-03-30 Completed Universit y of [facility] .5 mL 00:00:00 [facility] 6+ MO Branch TDAP 2019-03-30 Completed [facility] of 00:00:00 [facility] Influenza Virus 2019-03-30 Completed [facility]it y of [facility] .5 mL 00:00:00 [facility] 6+ MO [facility] TDAP 2019-03-30 Completed [facility] of 00:00:00 [facility] Influenza Virus 2019-03-30 Completed [facility]it y of [facility] .5 mL 00:00:00 [facility] 6+ MO [facility] TDAP 2019-03-30 Completed [facility] 00:00:00 [facility] Influenza Virus 2019-03-30 Completed [facility]it y of [facility] .5 mL 00:00:00 [facility] 6+ MO [facility] TDAP 2019-03-30 Completed [facility] of 00:00:00 [facility] Influenza Virus 2019-03-30 Completed [facility]it y of [facility] .5 mL 00:00:00 [facility] 6+ MO [facility] TDAP 2019-03-30 Completed [facility] of 00:00:00 [facility] Influenza Virus 2019-03-30 Completed [facility]it y of [facility] .5 mL 00:00:00 [facility] 6+ MO [facility] TDAP 2019-03-30 Completed [facility] 00:00:00 [facility] Influenza Virus 2019-03-30 Completed [facility] y of [facility] .5 mL 00:00:00 [facility] 6+ MO [facility] TDAP 2019-03-30 Completed [facility] of 00:00:00 [facility] Influenza Virus 2019-03-30 Completed [facility]it y of [facility] .5 mL 00:00:00 [facility] 6+ MO Branch TDAP 2019-03-30 Completed [facility] of 00:00:00 [facility] Influenza Virus 2019-03-30 Completed Universit y of [facility] .5 mL 00:00:00 [facility] 6+ MO Branch TDAP 2019-03-30 Completed [facility] of 00:00:00 [facility] Influenza Virus 2019-03-30 Completed Universit y of [facility] .5 mL 00:00:00 [facility] 6+ MO Margaret TDAP 2019-03-30 Completed [facility] of 00:00:00 [facility] Influenza Virus 2019-03-30 Completed [facility]it y of [facility] .5 mL 00:00:00 [facility] 6+ MO Branch TDAP 2019-03-30 Completed [facility] of 00:00:00 [facility] Influenza Virus 2019-03-30 Completed [facility] y of [facility] .5 mL 00:00:00 [facility] 6+ MO [facility] TDAP 2019-03-30 Completed [facility] of 00:00:00 [facility] Influenza Virus 2019-03-30 Completed [facility] y of [facility] .5 mL 00:00:00 [facility] 6+ MO [facility] TDAP 2019-03-30 Completed [facility] of 00:00:00 [facility] Influenza Virus 2019-03-30 Completed [facility]it y of [facility] .5 mL 00:00:00 [facility] 6+ MO [facility] TDAP 2019-03-30 Completed [facility] of 00:00:00 [facility] Influenza Virus 2019-03-30 Completed [facility]it y of [facility] .5 mL 00:00:00 [facility] 6+ MO [facility] TDAP 2019-03-30 Completed [facility] 00:00:00 [facility] Influenza Virus 2019-03-30 Completed [facility]it y of [facility] .5 mL 00:00:00 [facility] 6+ MO [facility] TDAP 2019-03-30 Completed [facility] 00:00:00 [facility] Influenza Virus 2019-03-30 Completed [facility] y of [facility] .5 mL 00:00:00 [facility] 6+ MO [facility] TDAP 2019-03-30 Completed [facility] of 00:00:00 [facility] Influenza Virus 2019-03-30 Completed [facility] y of [facility] .5 mL 00:00:00 [facility] 6+ MO [facility] TDAP 2019-03-30 Completed [facility] of 00:00:00 [facility] Influenza Virus 2019-03-30 Completed [facility] y of [facility] .5 mL 00:00:00 [facility] 6+ MO [facility] TDAP 2019-03-30 Completed [facility] of 00:00:00 [facility] Influenza Virus 2019-03-30 Completed [facility]it y of [facility] .5 mL 00:00:00 [facility] 6+ MO [facility] TDAP 2019-03-30 Completed [facility] of 00:00:00 [facility] Influenza Virus 2019-03-30 Completed [facility]it y of [facility] .5 mL 00:00:00 [facility] 6+ MO [facility] TDAP 2019-03-30 Completed [facility] of 00:00:00 [facility] Influenza Virus 2019-03-30 Completed [facility]it y of [facility] .5 mL 00:00:00 [facility] 6+ MO [facility] TDAP 2019-03-30 Completed [facility] of 00:00:00 [facility] Influenza Virus 2019-03-30 Completed [facility]it y of [facility] .5 mL 00:00:00 [facility] 6+ MO [facility] TDAP 2019-03-30 Completed [facility] of 00:00:00 [facility] Influenza Virus 2019-03-30 Completed [facility]it y of [facility] .5 mL 00:00:00 [facility] 6+ MO [facility] TDAP 2019-03-30 Completed [facility] of 00:00:00 [facility] Influenza Virus 2019-03-30 Completed [facility]it y of [facility] .5 mL 00:00:00 [facility] 6+ MO [facility] TDAP 2019-03-30 Completed [facility] of 00:00:00 [facility] Influenza Virus 2019-03-30 Completed [facility]it y of [facility] .5 mL 00:00:00 [facility] 6+ MO [facility] TDAP 2019-03-30 Completed [facility] of 00:00:00 [facility] Influenza Virus 2019-03-30 Completed [facility]it y of [facility] .5 mL 00:00:00 [facility] 6+ MO [facility] TDAP 2019-03-30 Completed [facility] of 00:00:00 [facility] Influenza Virus 2019-03-30 Completed [facility] y of [facility] .5 mL 00:00:00 [facility] 6+ MO [facility] TDAP 2019-03-30 Completed [facility] of 00:00:00 [facility] Influenza Virus 2019-03-30 Completed [facility]it y of [facility] .5 mL 00:00:00 [facility] 6+ MO Branch TDAP 2019-03-30 Completed [facility] of 00:00:00 [facility] Influenza Virus 2019-03-30 Completed Universit y of [facility] .5 mL 00:00:00 [facility] 6+ MO Branch TDAP 2019-03-30 Completed [facility] of 00:00:00 [facility] Influenza Virus 2019-03-30 Completed Universit y of [facility] .5 mL 00:00:00 [facility] 6+ MO Branch TDAP 2018-01-28 Completed [facility] 00:00:00 [facility] TDAP 2018-01-28 Completed [facility] 00:00:00 [facility] TDAP 2018-01-28 Completed [facility] 00:00:00 [facility] TDAP 2018-01-28 Completed [facility] 00:00:00 [facility] TDAP 2018-01-28 Completed [facility] 00:00:00 [facility] TDAP 2018-01-28 Completed [facility] 00:00:00 [facility] TDAP 2018-01-28 Completed [facility] 00:00:00 [facility] TDAP 2018-01-28 Completed [facility] 00:00:00 [facility] TDAP 2018-01-28 Completed [facility] 00:00:00 [facility] TDAP 2018-01-28 Completed [facility] 00:00:00 [facility] TDAP 2018-01-28 Completed [facility] 00:00:00 [facility] TDAP 2018-01-28 Completed [facility] 00:00:00 [facility] TDAP 2018-01-28 Completed [facility] 00:00:00 [facility] TDAP 2018-01-28 Completed [facility] 00:00:00 [facility] TDAP 2018-01-28 Completed [facility] 00:00:00 [facility] TDAP 2018-01-28 Completed [facility] 00:00:00 [facility] TDAP 2018-01-28 Completed [facility] 00:00:00 [facility] TDAP 2018-01-28 Completed [facility] 00:00:00 [facility] TDAP 2018-01-28 Completed [facility] 00:00:00 [facility] TDAP 2018-01-28 Completed [facility] 00:00:00 [facility] TDAP 2018-01-28 Completed [facility] 00:00:00 [facility] TDAP 2018-01-28 Completed [facility] 00:00:00 [facility] TDAP 2018-01-28 Completed [facility] 00:00:00 [facility] TDAP 2018-01-28 Completed [facility] 00:00:00 [facility] TDAP 2018-01-28 Completed [facility] 00:00:00 [facility] TDAP 2018-01-28 Completed [facility] 00:00:00 [facility] TDAP 2018-01-28 Completed [facility] 00:00:00 [facility] TDAP 2018-01-28 Completed [facility] 00:00:00 [facility] TDAP 2018-01-28 Completed [facility] 00:00:00 [facility] TDAP 2018-01-28 Completed [facility] 00:00:00 [facility] TDAP 2018-01-28 Completed [facility] 00:00:00 [facility] TDAP 2018-01-28 Completed [facility] 00:00:00 [facility] TDAP 2018-01-28 Completed [facility] 00:00:00 [facility] TDAP 2018-01-28 Completed [facility] 00:00:00 [facility] TDAP 2018-01-28 Completed [facility] 00:00:00 [facility] TDAP 2018-01-28 Completed [facility] 00:00:00 [facility] TDAP 2018-01-28 Completed [facility] 00:00:00 [facility] TDAP 2018-01-28 Completed [facility] 00:00:00 [facility] TDAP 2018-01-28 Completed [facility] 00:00:00 [facility] TDAP 2018-01-28 Completed [facility] of 00:00:00 [facility] TDAP 2018-01-28 Completed [facility] of 00:00:00 [facility] TDAP 2018-01-28 Completed [facility] of 00:00:00 [facility] TDAP 2018-01-28 Completed [facility] of 00:00:00 [facility] TDAP 2018-01-28 Completed [facility] 00:00:00 [facility] TDAP Unknown Completed [facility] TDAP Unknown Completed [facility] Influenza Virus Unknown Completed [facility] y of Vaccine Quad .5 mL [facility] IM 6+ MO Branch (FLUZONE/FLULAVAL/F LUARIX) Varicella Unknown Completed [facility] (varivax)(chicken [place] [facility] Vital Signs Vital Name Observation Time Observation Value Comments Source Systolic blood 2022-07-05 18:23:00 115 mm[Hg] Univer sity of pressure [facility] Diastolic blood 2022-07-05 18:23:00 82 mm[Hg] Unive rsity of [facility] Heart rate 2022-07-05 18:23:00 69 /min [facility] Body temperature 2022-07-05 18:23:00 35.83 Ines [facility] 2022-07-05 18:23:00 18 /min [facility] Body height 2022-07-05 18:23:00 154.9 cm [facility] Body weight 2022-07-05 18:23:00 77.293 kg [facility] BMI 2022-07-05 18:23:00 32.20 kg/m2 [facility] Systolic blood 2022-06-14 13:11:00 130 mm[Hg] Univer sity of [facility] Diastolic blood 2022-06-14 13:11:00 78 mm[Hg] Unive rsity of pressure [facility] Heart rate 2022-06-14 13:11:00 65 /min [facility] Body temperature 2022-06-14 13:11:00 36.83 Ines [facility] 2022-06-14 13:11:00 18 /min Univ [facility] Oxygen saturation in 2022-06-14 13:11:00 98 /min [facility] Arterial blood by [facility] Body height 2022-06-11 08:00:00 154.9 cm [facility] Body weight 2022-06-11 08:00:00 86.183 kg [facility] BMI 2022-06-11 08:00:00 35.90 kg/m2 [facility] Systolic blood 2022-06-12 05:40:00 127 mm[Hg] Univer sity of pressure [facility] Diastolic blood 2022-06-12 05:40:00 75 mm[Hg] Unive rsity of pressure [facility] Heart rate 2022-06-12 05:40:00 74 /min [facility] Respiratory rate 2022-06-12 05:40:00 15 /min Univ ersity of [facility] Oxygen saturation in 2022-06-12 05:40:00 95 /min [facility] Arterial blood by [facility] Body temperature 2022-06-12 03:11:00 37.17 Ines Univ ersity of [facility] Body height 2022-06-11 08:00:00 154.9 cm [facility] Body weight 2022-06-11 08:00:00 86.183 kg [facility] BMI 2022-06-11 08:00:00 35.90 kg/m2 [facility] Systolic blood 2022-06-05 21:16:00 119 mm[Hg] Univer sity of pressure [facility] Diastolic blood 2022-06-05 21:16:00 77 mm[Hg] Unive rsity of pressure [facility] Heart rate 2022-06-05 21:16:00 88 /min [facility] Body temperature 2022-06-05 21:16:00 36.28 Ines Univ ersity of [facility] Respiratory rate 2022-06-05 21:16:00 18 /min Univ ersity of [facility] Body height 2022-06-05 21:16:00 154.9 cm [facility] Body weight 2022-06-05 21:16:00 84.732 kg [facility] BMI 2022-06-05 21:16:00 35.30 kg/m2 [facility] Systolic blood 2022-05-29 22:35:00 118 mm[Hg] Univer sity of pressure [facility] Diastolic blood 2022-05-29 22:35:00 65 mm[Hg] Unive rsity of pressure [facility] Heart rate 2022-05-29 22:35:00 92 /min [facility] Body temperature 2022-05-29 22:35:00 36.17 Ines Univ ersity of [facility] Respiratory rate 2022-05-29 22:35:00 17 /min Univ ersity of [facility] Body height 2022-05-29 22:35:00 154.9 cm [facility] Body weight 2022-05-29 22:35:00 81.511 kg [facility] BMI 2022-05-29 22:35:00 33.95 kg/m2 [facility] Systolic blood 2022-05-22 21:46:00 116 mm[Hg] Univer sity of pressure [facility] Diastolic blood 2022-05-22 21:46:00 72 mm[Hg] Unive rsity of pressure [facility] Heart rate 2022-05-22 21:46:00 83 /min [facility] Body temperature 2022-05-22 21:46:00 35.39 Ines Univ ersity of [facility] Respiratory rate 2022-05-22 21:46:00 18 /min Univ ersity of [facility] Body height 2022-05-22 21:46:00 154.9 cm [facility] Body weight 2022-05-22 21:46:00 84.188 kg [facility] BMI 2022-05-22 21:46:00 35.07 kg/m2 [facility] Systolic blood 2022-05-08 16:44:00 125 mm[Hg] Univer sity of pressure [facility] Diastolic blood 2022-05-08 16:44:00 83 mm[Hg] Unive rsity of pressure [facility] Heart rate 2022-05-08 16:44:00 94 /min [facility] Body temperature 2022-05-08 16:44:00 35.83 Ines Univ ersity of [facility] Respiratory rate 2022-05-08 16:44:00 18 /min Univ ersity of [facility] Body height 2022-05-08 16:44:00 157.5 cm [facility] Body weight 2022-05-08 16:44:00 83.87 kg [facility] BMI 2022-05-08 16:44:00 33.82 kg/m2 [facility] Systolic blood 2022-04-10 16:05:00 106 mm[Hg] Univer sity of pressure [facility] Diastolic blood 2022-04-10 16:05:00 64 mm[Hg] Unive rsity of pressure [facility] Heart rate 2022-04-10 16:05:00 88 /min [facility] Body temperature 2022-04-10 16:05:00 36.61 Ines Univ ersity of [facility] Respiratory rate 2022-04-10 16:05:00 17 /min Univ ersity of [facility] Body height 2022-04-10 16:05:00 157.5 cm [facility] Body weight 2022-04-10 16:05:00 83.779 kg [facility] BMI 2022-04-10 16:05:00 33.78 kg/m2 [facility] Systolic blood 2022-02-03 19:00:00 110 mm[Hg] Univer sity of pressure [facility] Diastolic blood 2022-02-03 19:00:00 70 mm[Hg] Unive rsity of pressure [facility] Heart rate 2022-02-03 19:00:00 88 /min [facility] Body temperature 2022-02-03 19:00:00 36.72 Ines Univ ersity of [facility] Respiratory rate 2022-02-03 19:00:00 17 /min Univ ersity of [facility] Body height 2022-02-03 19:00:00 157.5 cm [facility] Body weight 2022-02-03 19:00:00 80.287 kg [facility] BMI 2022-02-03 19:00:00 32.37 kg/m2 [facility] Systolic blood 2022-01-04 18:15:00 125 mm[Hg] Univer sity of pressure [facility] Diastolic blood 2022-01-04 18:15:00 78 mm[Hg] Unive rsity of pressure [facility] Heart rate 2022-01-04 18:15:00 91 /min [facility] Body temperature 2022-01-04 18:15:00 36.56 Ines Univ ersity of [facility] Respiratory rate 2022-01-04 18:15:00 18 /min Univ ersity of [facility] Body height 2022-01-04 18:15:00 157.5 cm [facility] Body weight 2022-01-04 18:15:00 79.039 kg [facility] BMI 2022-01-04 18:15:00 31.87 kg/m2 [facility] Systolic blood 2021-12-07 19:50:00 131 mm[Hg] Univer sity of pressure [facility] Diastolic blood 2021-12-07 19:50:00 81 mm[Hg] Unive rsity of pressure [facility] Heart rate 2021-12-07 19:50:00 79 /min [facility] Body temperature 2021-12-07 19:50:00 35.94 Ines Univ ersity of [facility] Respiratory rate 2021-12-07 19:50:00 18 /min Univ ersity of [facility] Body height 2021-12-07 19:50:00 157.5 cm [facility] Body weight 2021-12-07 19:50:00 78.2 kg [facility] BMI 2021-12-07 19:50:00 31.53 kg/m2 [facility] Systolic blood 2021-12-07 19:50:00 131 mm[Hg] Univer sity of pressure [facility] Diastolic blood 2021-12-07 19:50:00 81 mm[Hg] Unive rsity of pressure [facility] Heart rate 2021-12-07 19:50:00 79 /min [facility] Body temperature 2021-12-07 19:50:00 35.94 Ines Univ ers[facility] of [facility] Respiratory rate 2021-12-07 19:50:00 18 /min [facility] Body height 2021-12-07 19:50:00 157.5 cm [facility] Body weight 2021-12-07 19:50:00 78.2 kg [facility] BMI 2021-12-07 19:50:00 31.53 kg/m2 [facility] Procedures Procedure Date / Time Performing Clinician Source Performed POCT URINALYSIS 2022-07-05 18:26:[address] [facility] CBC WITH DIFF 2022-06-12 08:07:00 Jose [facility] CBC WITH DIFF 2022-06-12 08:07:00 Jose [facility] SURGICAL PATHOLOGY EXAM 2022-06-12 04:43:00 Cachorro [facility] TUBAL LIGATION 2022-06-12 04:08:00 Ivory, [facility] TUBAL LIGATION 2022-06-12 04:08:00 Cachorro [facility] VENOUS CORD GAS 2022-06-12 03:10:00 Sheila Wise [facility] VENOUS CORD GAS 2022-06-12 03:10:00 Sheila Wise [facility] CENTRAL NEURAXIAL BLOCK 2022-06-11 19:37:00 Noemí Beltran [facility] CBC WITH DIFF 2022-06-11 09:49:00 Sheila Wise [facility] CBC WITH DIFF 2022-06-11 09:49:00 Sheila Wise [facility] HEPATITIS B SURFACE 2022-06-11 09:41:00 Sheila Wise [facility] HB ABO GROUPING 2022-06-11 09:41:00 Sheila Wise [facility] RHO (D) IMMUNE GLOBULIN 2022-06-11 09:41:00 Swati Garcia [facility] SYPHILIS IGG/IGM 2022-06-11 09:41:00 Sheila Wise [facility] HEPATITIS B SURFACE 2022-06-11 09:41:00 Sheila Wise [facility] HB ABO GROUPING 2022-06-11 09:41:00 Sheila Wise [facility] RHO (D) IMMUNE GLOBULIN 2022-06-11 09:41:00 Swati Garcia [facility] SYPHILIS IGG/IGM 2022-06-11 09:41:00 Sheila Wise [facility] POCT URINALYSIS 2022-06-05 21:17:00 Haroon Saeed [facility] PATIENT FINANCIAL 2022-05-29 22:16:00 Doctor Unassigned, No [facility] POLICY [facility] POCT URINALYSIS 2022-05-29 00:00:[address] [facility] POCT URINALYSIS 2022-05-22 21:47:[address] [facility] POCT URINALYSIS 2022-05-08 16:48:[address] [facility] [facility] TDAP VACCINE, >11 YRS, 2022-04-10 16:13:41 [facility] STERILIZATION CONSENT 2022-04-10 06:01:00 Doctor Unassigned, No [facility] FORM [facility] POCT URINALYSIS 2022-04-10 00:00:[address] [facility] MISCELLANEOUS SENDOUT 2022-02-15 06:01:00 Doctor Unassigned, No [facility] TEST [facility] POCT URINALYSIS 2022-02-03 00:00:[address] [facility] POCT URINALYSIS 2022-01-04 18:16:[address] [facility] CBC WITH DIFF 2021-12-07 21:00:[address] [facility] RUBELLA SCREEN IGG 2021-12-07 21:00:00 Haroon Saeed [facility] VZV ANTIBODY SCREEN 2021-12-07 21:00:00 Haroon Saeed [facility] HEPATITIS B SURFACE 2021-12-07 21:00:00 Haroon Saeed [facility] ANTIGEN [facility] HCV ANTIBODY 2021-12-07 21:00:[address] [facility] URINE CULTURE 2021-12-07 21:00:[address] [facility] GC & CHLAMYDIA AMPLIFIED 2021-12-07 21:00:00 [facility] HIV 1/2 AG-AB WITH 2021-12-07 21:00:00 Haroon Saeed [facility] GALV ONLY - SYPHILIS 2021-12-07 21:00:00 Haroon Saeed [facility] IGG/IGM [facility] HB ABO GROUPING 2021-12-07 20:58:[address] [facility] POCT TEST 2021-12-07 19:50:00 Haroon Saeed [facility] POCT URINALYSIS 2021-12-07 19:49:[address] [facility] Encounters Start End Encounter Admission Attending Care Care Encounter Source Date/Time Date/Time Type Type Clinicians Facility Department ID 2021-01-26 Outpatient [facility] [id number] Univers 13:42:52 [facility] 2022-10-17 2022-10-17 Outpatient R AKINSIPE, [facility] [id number] Univers 14:15:00 14:15:00 TIMMY merino [facility] 2022-10-05 2022-10-05 Outpatient R AKINSIPE, [facility] [id number] Univers 13:30:00 13:30:00 TIMMY ferrari o f [facility] 2022-07-31 2022-07-31 Outpatient R AKINSIPE, [facility] [id number] Univers 14:30:00 14:30:00 TIMMY ity o f [facility] 2022-07-05 2022-07-05 [facility] 1.2.840.114 [id number] Univers 12:45:00 14:23:03 Savannah Arnold REHAB SPEC 350.1.13.10 ity of Visit REGIONAL 4.2.7.2.686 Amari as MATERNAL [id number] [facility] ical & CHILD [address] [place] [address] 2022-07-05 2022-07-05 [facility] [id number] Univers 12:45:00 14:23:03 SAVANNAH liliany [facility] 2022-06-11 2022-06-14 [email or web address] ANA [id number] Univers 02:54:00 12:58:00 VICTOR HUGO ity [facility] 2022-06-11 2022-06-14 Hospital NIKITA Lee 1.2.500.769 [id number] Univers 02:54:00 12:58:00 Encounter Victor Hugo ERNANDEZ 350.1.13.10 ity of HOSPITAL 4..7.2.686 Amari as [id number] [facility] [address] 2022-06-14 2022-06-14 Refskip Santamaria [facility] 1.2.330.387 [id number] Univers 00:00:00 00:00:00 Timmy Acuña REHAB SPEC 350.1.13.10 ity of REGIONAL 4.2.7.2.686 Amari as MATERNAL [id number] [facility] ical & CHILD [address] [place] [address] 2022-06-12 2022-06-12 Anesthesia NIKITA Mcgraw 1.2.840.114 [id number] Univers 20:03:26 20:03:26 Event Delbert ERNANDEZ 350.1.13.10 it y of HOSPITAL 4.2.7.2.686 Amari as [id number] [facility] [address] 2022-06-11 2022-06-12 Surgery NIKITA Ivory 1.2.840.114 [id number] Univers 23:10:00 00:42:00 Lucius ERNANDEZ 350.1.13.10 ity of HOSPITAL 4.2.7.2.686 Amari as [id number] [facility] [address] 2022-06-11 2022-06-11 Anesthesia MariluzBushramarybel [facility] 1.2.840.11 [id number] Univers 14:05:00 23:22:00 Event Hannah Borrego 350 .1.13.10 ity of [facility] 4.2.7.2.686 Amari as [id number] [facility] [address] 2022-06-05 2022-06-05 Outpatient R AKINSIPE, [facility] [id number] Univers 15:15:00 15:39:47 TIMMY ity o f [facility] 2022-06-05 2022-06-05 Routine [facility] 1.2.709.594 [id number] [facility] 15:15:00 15:39:47 Timmy C REHAB SPEC 350.1.13.10 ity of Visit REGIONAL 4.2.7.2.686 Amari as MATERNAL [id number] Med ical & CHILD [address] [place] [address] 2022-05-30 2022-05-30 Telephone [facility] 1.2.840.114 [id number] [facility] 00:00:00 00:00:00 Timmy C REHAB SPEC 350.1.13.10 ity of REGIONAL 4.2.7.2.686 Amari as MATERNAL [id number] [facility] & CHILD [address] [place] [address] 2022-05-30 2022-05-30 Telephone [facility] 1.2.840.114 [id number] Univers 00:00:00 00:00:00 Timmy C REHAB SPEC 350.1.13.10 ity of REGIONAL 4.2.7.2.686 Amari as MATERNAL [id number] [facility] & CHILD [address] [place] [address] 2022-05-29 2022-05-29 Routine [facility] 1.2.919.939 [id number] Univers 16:00:00 16:15:00 Timmy C REHAB SPEC 350.1.13.10 ity of Visit REGIONAL 4.2.7.2.686 Amari as MATERNAL [id number] [facility] & CHILD [address] [place] [address] 2022-05-29 2022-05-29 Outpatient R ROSALIO [facility] [id number] Univers 16:00:00 16:00:00 TIMMY ity o f [facility] 2022-05-29 2022-05-29 Orders Doctor [place] 1.2.840.114 [id number] Univers 00:00:00 00:00:00 Only Unassigned, OMA 350.1.13.10 ity of [place] [facility] 4.2.7.2.686 Amari as [id number] [address] 2022-05-22 2022-05-22 Outpatient [facility] [id number] Univers 15:45:00 16:09:54 TIMMY ferrari o f [facility] 2022-05-22 2022-05-22 Routine [email or web address] 1.2.768.221 [id number] Univers 15:45:00 16:09:54 Timmy C REHAB SPEC 350.1.13.10 ity of Visit [facility] 4.2.7.2.686 Amari as MATERNAL [id number] [facility] & CHILD [address] [place] [address] 2022-05-08 2022-05-08 Outpatient [facility] [id number] Univers 10:15:00 11:00:15 TIMMY itkim o f [facility] 2022-05-08 2022-05-08 Routine [email or web address] 1.2.242.718 [id number] Univers 10:15:00 11:00:15 Timmy C REHAB SPEC 350.1.13.10 ity of Visit [facility] 4.2.7.2.686 Amari as MATERNAL [id number] [facility] & CHILD [address] [place] [address] 2022-04-26 2022-04-26 Outpatient R STEVE [facility] [id number] Univers 14:30:00 14:30:00 SAVANNAH itkim [facility] 2022-04-11 2022-04-11 [email or web address] 1.2.840.114 [id number] Univers 00:00:00 00:00:00 Management Savannah Arnold REHAB SPEC 350.1.13.10 ity of REGIONAL 4.2.7.2.686 Amari as MATERNAL [id number] [facility] & CHILD [address] [place] [address] 2022-04-10 2022-04-10 Outpatient R STEVE [facility] [id number] Univers 09:30:00 10:51:07 SAVANNAH ity [facility] 2022-04-10 2022-04-10 Routine Provider, Riyachgrady [facility] 1 .2.840.114 [id number] Univers 09:30:00 10:51:07 Savannah Wilson REHAB SPEC 350.1.13. 10 ity of Visit [facility] 4.2.7.2.686 Amari as MATERNAL [id number] [facility] & [address] 2022-04-10 2022-04-10 Orders Doctor NIKITA 1.2.840.114 [id number] Univers 00:00:00 00:00:00 Only Unassigned, OMA 350.1.13.10 ity of [place] [facility] 4.2.7.2.686 Amari as [id number] [address] 2022-03-12 2022-03-12 Outpatient R ROSALIO [facility] [id number] Univers 08:45:00 08:45:00 TIMMY snyder [facility] 2022-03-08 2022-03-08 Refill [email or web address] 1.2.429.842 [id number] Univers 00:00:00 00:00:00 Timmy Acuña REHAB SPEC 350.1.13.10 ity of REGIONAL 4.2.7.2.686 Amari as MATERNAL [id number] [facility] & [address] 2022-03-05 2022-03-05 Outpatient R ROSALIO [facility] [id number] Univers 08:00:00 08:00:00 TIMMY snyder [facility] 2022-02-26 2022-02-26 Telephone [email or web address] 1.2.840.114 [id number] Univers 00:00:00 00:00:00 Ambar SPECIALTY 350.1.13.10 it[place] of [place] [id number] [facility] [address] 2022-02-26 2022-02-26 Patient Doctor [facility] 1.2.840.114 [id number] Univers 00:00:00 00:00:00 Secure Msg Unassigned, SPECIALTY 350.1.13.10 it[place] [id number] [facility] [address] 2022-02-15 2022-02-15 Pairer Inspector Lab, Rob-Rmchp [facility] 1.2.840. 114 [id number] Univers 13:00:00 13:58:04 Visit Timmy Santamaria REHAB SPEC 350.1.13. 10 ity of [facility] 4.2.7.2.686 Amari as MATERNAL [id number] Med ical & CHILD [address] [place] [address] 2022-02-15 2022-02-15 Outpatient R ROSALIO [facility] [id number] Univers 13:00:00 13:00:00 TIMMY snyder [facility] 2022-02-15 2022-02-15 Orders Doctor NIKITA 1.2.840.114 [id number] Univers 00:00:00 00:00:00 Only Unassigned, OMA 350.1.13.10 ity of [place] [facility] 4.2.7.2.686 Amari as [id number] [facility] [address] 2022-02-12 2022-02-12 Outpatient P JAVON JENSEN [facility] [id number] Univers 11:15:00 12:04:18 ity of [facility] 2022-02-12 2022-02-12 Telemedici Ambar Paige [facility] 1.2.8 40.114 [id number] Univers 11:15:00 12:04:18 ne Visit Javon Jensen REHAB SPEC 350.1.13.10 ity of [facility] 4.2.7.2.686 Amari as MATERNAL [id number] Med ical & CHILD [address] [place] [address] 2022-02-12 2022-02-12 Abstract JAM Saeed 1.2.840.114 [id number] Univers 00:00:00 00:00:00 [facility] 350.1.13.10 ity of [facility] [place].2.7.2.[place] [id number] [facility] [address] 2022-02-09 2022-02-09 Pairer Inspector Ultrasound, [facility] 1.2 .840.114 [id number] Univers 13:00:00 13:59:58 Visit Nikia Carey REHAB SPEC 350.1. 13.10 ity of [facility] 4.2.7.2.686 Amari as MATERNAL [id number] [facility] ical & CHILD [address] [facility] 2022-02-09 2022-02-09 Outpatient P AURELIO [facility] [id number] Univers 13:00:00 13:00:00 NIKIA ity [facility] 2022-02-06 2022-02-06 Nurse NIKITA Fermin 1.2.840.114 [id number] Univers 00:00:00 00:00:00 Triage Loan ERNANDEZ 350.1.13.10 it y of [facility] 4.2.7.2.686 Amari as [id number] [facility] [address] 2022-02-06 2022-02-06 Telephone Rosalio [facility] 1.2.840.114 [id number] Univers 00:00:00 00:00:00 Timmy Acuña REHAB SPEC 350.1.13.10 ity of [facility] 4.2.7.2.686 Amari as MATERNAL [id number] [facility] ical & CHILD [address] [place] [address] 2022-02-06 2022-02-06 Telephone Rosalio [facility] 1.2.840.114 [id number] Univers 00:00:00 00:00:00 Timmy Acuña REHAB SPEC 350.1.13.10 ity of [facility] 4.2.7.2.686 Amari as MATERNAL [id number] [facility] ical & CHILD [address] [place] [address] 2022-02-05 2022-02-05 Telephone Carlos [facility] 1.2.840.114 [id number] Univers 00:00:00 00:00:00 Rina REHAB SPEC 350.1.13.10 it y of [facility] 4.2.7.2.686 Amari as MATERNAL [id number] [facility] & CHILD [address] [place] [address] 2022-02-03 2022-02-03 Outpatient Angie ROSAS [facility] [id number] Univers 13:45:00 14:29:12 RUMA ferrari [facility] 2022-02-03 2022-02-03 Routine Provider, Rob-Rmchp [facility] 1 .2.840.114 [id number] Univers 13:45:00 14:29:12 Ruma Rosas REHAB SPEC 350.1.13.10 ity of Visit Rina Gonzalez [facility] 4.2.7.2.686 [place] MATERNAL [id number] [facility] & [address] 2022-02-01 2022-02-01 Outpatient [facility] [id number] Univers 13:15:00 13:15:00 TIMMY ferrari o f [facility] 2022-01-29 2022-01-29 [facility] 1.2.840.114 [id number] Univers 00:00:00 00:00:00 Timmy Acuña REHAB SPEC 350.1.13.10 ity of [facility] 4.2.7.2.686 Amari as MATERNAL [id number] [facility] & [address] 2022-01-16 2022-01-16 Outpatient Angie MENDOZA [facility] [id number] Univers 13:00:00 13:00:00 MOUSTAPHA itkim [facility] 2022-01-09 2022-01-09 Outpatient Angie CASILLAS [facility] [id number] Univers 08:00:00 08:00:00 KIM itkim o f [facility] 2022-01-05 2022-01-05 Telephone [email or web address] 1.2.840.114 [id number] Univers 00:00:00 00:00:00 Timmy C REHAB SPEC 350.1.13.10 ity of [facility] 4.2.7.2.686 Amari as MATERNAL [id number] [facility] & CHILD [address] [place] [address] 2022-01-04 2022-01-04 Pairer Inspector Ultrasound, Avelino [facility] 1.2 .840.114 [id number] Univers 13:00:00 14:15:00 Visit Timmy Santamaria REHAB SPEC 350.1.13. 10 ity of Nikia Carey REGIONAL 4.2.7.2 .686 [place] MATERNAL [id number] [facility] & CHILD [address] [facility] 2022-01-04 2022-01-04 Outpatient [facility] [id number] Univers 13:00:00 14:11:39 NIKIA [facility] 2022-01-04 2022-01-04 Routine [email or web address] 1.2.333.985 [id number] Univers 12:45:00 13:39:10 Timmy Acuña REHAB SPEC 350.1.13.10 ity of Visit REGIONAL 4.2.7.2.686 Amari as MATERNAL [id number] [address] 2022-01-04 2022-01-04 Outpatient [facility] [id number] Univers 12:45:00 12:45:00 TIMMY ferrari o [facility] 2022-01-04 2022-01-04 Outpatient R ROSALIO, [facility] [id number] Univers 12:45:00 12:45:00 TIMMY ity o [facility] 2022-01-04 2022-01-04 Abstract [email or web address] 1.2.543.845 [id number] Univers 00:00:00 00:00:00 Haroon Wan REHAB SPEC 350.1.13.10 i ty of REGIONAL 4.2.7.2.686 Amari as MATERNAL [id number] [facility] & CHILD [address] [place] [address] 2022-01-02 2022-01-02 Outpatient R REJI [facility] [id number] Univers 13:00:00 13:00:00 MOUSTAPHA ferrari [facility] 2021-12-29 2021-12-29 Outpatient P [facility] [id number] Univers 13:00:00 13:00:00 ity of [facility] 2021-12-29 2021-12-29 Outpatient P [facility] [id number] Univers 13:00:00 13:00:00 ity of [facility] 2021-12-15 2021-12-15 Telephone [email or web address] 1.2.840.114 [id number] Univers 00:00:00 00:00:00 Timmy Acuña REHAB SPEC 350.1.13.10 ity of REGIONAL 4.2.7.2.686 Amari as MATERNAL [id number] Med ical & CHILD [address] [place] [address] 2021-12-11 2021-12-11 Telephone [email or web address] 1.2.992.458 [id number] Univers 00:00:00 00:00:00 Kim Adams REHAB SPEC 350.1.13.10 ity of REGIONAL 4.2.7.2.686 Amari as MATERNAL [id number] Med ical & CHILD [address] [place] [address] 2021-12-08 2021-12-08 Case Steven [facility] 1.2.840.114 [id number] Univers 00:00:00 00:00:00 Management Haroon Wan REHAB SPEC 350.1.13.10 ity of REGIONAL 4.2.7.2.686 Amari as MATERNAL [id number] Med ical & CHILD [address] [place] [address] 2021-12-07 2021-12-07 Initial Provider, Ang-Rmchp [facility] 1 .2.840.114 [id number] Univers 14:00:00 15:58:53 Haroon Saeed REHAB SPEC 350.1.13.10 ity of Visit REGIONAL 4.2.7.2.686 Amari as MATERNAL [id number] [facility] ical & CHILD [address] [place] [address] 2021-12-07 2021-12-07 Outpatient R HAROON SAEED [facility] [id number] Univers 14:00:00 15:58:53 HAROON SAEED vonda [facility] 2021-12-07 2021-12-07 Initial Provider, [facility] 1 .2.840.114 [id number] Univers 14:00:00 15:58:53 Haroon Saeed REHAB SPEC 350.1.13.10 ity of Visit REGIONAL 4.2.7.2.686 Amari as MATERNAL [id number] [facility] ical & CHILD [address] [place] [address] 2021-12-07 2021-12-07 Outpatient R HAROON SAEED [facility] [id number] Univers 13:30:00 14:12:27 HAROON SAEED itkim [facility] 2021-12-07 2021-12-07 Orders Doctor NIKITA 1.2.840.114 [id number] Univers 00:00:00 00:00:00 Only Unassigned, OMA 350.1.13.10 ity of [place] [facility] 4.2.7.2.686 Amari as [id number] [address] 2020-06-20 2020-06-20 Patient [facility] 1.2.840.114 [id number] Univers 00:00:00 00:00:00 Outreach [facility] 350.1.13.10 i ty of [facility] 4.2.7.2.686 [place] [id number] [address] 2019-09-14 2019-09-14 Outpatient R SONJA [facility] [id number] Univers 14:15:00 14:15:00 KIM ferrari o f [facility] 2019-08-27 2019-08-27 Office [email or web address] 1.2.840.114 [id number] Univers 11:18:19 12:12:56 Visit Kim Adams REHAB SPEC 350.1.13.10 ity of REGIONAL 4.2.7.2.686 Amari as MATERNAL [id number] [facility] ical & CHILD [address] [place] [address] 2019-08-27 2019-08-27 Outpatient R SONJA [facility] [id number] Univers 11:00:00 11:00:00 KIM ferrari o f [facility] 2019-08-19 2019-08-19 Telephone [email or web address] 1.2.780.726 [id number] Univers 00:00:00 00:00:00 Roshunda R REHAB SPEC 350.1.13.10 ity of REGIONAL 4.2.7.2.686 Amari as MATERNAL [id number] [facility] & CHILD [address] [place] [address] 2019-08-06 2019-08-06 Outpatient Ang[facility] [id number] Univers 11:00:00 11:00:00 ROSHUNDA ity o f [facility] 2019-07-30 2019-07-30 Corbin [email or web address] 1.2.804.149 [id number] Univers 00:00:00 00:00:00 Roshunda R REHAB SPEC 350.1.13.10 ity of REGIONAL 4.2.7.2.686 Amari as MATERNAL [id number] [facility] & [address] 2019-07-02 2019-07-02 [facility] 1.2.840.114 [id number] Univers 09:15:00 14:57:48 ne Visit Rosnda R REHAB SPEC 350.1.13.10 ity of REGIONAL 4.2.7.2.686 Amari as MATERNAL [id number] [facility] & [address] 2019-07-02 2019-07-02 Outpatient Angie [facility] [id number] Univers 09:15:00 09:15:00 ROSHUNDA ity o [facility] 2019-07-02 2019-07-02 [facility] 1.2.252.561 [id number] Univers 00:00:00 00:00:00 Roshunda R REHAB SPEC 350.1.13.10 ity of REGIONAL 4.2.7.2.686 Amari as MATERNAL [id number] [facility] & [address] 2019-06-25 2019-06-25 [email or web address] 1.2.840.114 [id number] Univers 15:30:36 15:45:36 ne Visit Rosnda R REHAB SPEC 350.1.13.10 ity of REGIONAL 4.2.7.2.686 Amari as MATERNAL [id number] [facility] ical & CHILD [address] [place] [address] 2019-06-25 2019-06-25 Outpatient Angie CASILLAS [facility] [id number] Univers 15:30:00 15:30:00 ROSHUNDA ity o f [facility] 2019-06-25 2019-06-25 Telephone [facility] 1.2.037.572 [id number] Univers 00:00:00 00:00:00 Roshunda R REHAB SPEC 350.1.13.10 ity of [facility] 4.2.7.2.686 Amari as MATERNAL [id number] [facility] ical & CHILD [address] [place] [address] 2019-06-12 2019-06-12 Telephone [facility] 1.2.434.248 [id number] Univers 00:00:00 00:00:00 Roshunda R REHAB SPEC 350.1.13.10 ity of [facility] 4.2.7.2.686 Amari as MATERNAL [id number] [facility] ical & CHILD [address] [place] [address] 2019-06-09 2019-06-11 [facility] 1.2.840.114 [id number] Univers 21:20:00 15:09:00 Encounter Sera ERNANDEZ 350.1.13.10 ity of [facility] 4.2.7.2.686 Amari as [id number] [address] 2019-06-09 2019-06-09 Routine [facility] 1.2.840.114 [id number] Univers 13:57:51 14:32:52 Roshunda R REHAB SPEC 350.1.13.10 ity of Visit REGIONAL 4.2.7.2.686 Amari as MATERNAL [id number] [facility] & CHILD [address] [place] [address] 2019-06-09 2019-06-09 Outpatient Angie CASILLAS [facility] [id number] Univers 14:00:00 14:00:00 ROSHUNDA ity o f [facility] 2019-06-08 2019-06-08 Outpatient Angie CASILLAS [facility] [id number] Univers 13:45:00 13:45:00 ROSHUNDA ity o f [facility] 2019-06-01 2019-06-01 Routine Sonja [facility] 1.2.840.114 [id number] Univers 12:59:46 14:07:57 Roshunda R REHAB SPEC 350.1.13.10 ity of Visit REGIONAL 4.2.7.2.686 Amari as MATERNAL [id number] [facility] & [address] 2019-06-01 2019-06-01 Outpatient R CASILLAS, [facility] [id number] [employer] 13:00:00 13:00:00 ROSHUNDA ity o f [facility] 2019-05-25 2019-05-25 [email or web address] 1.2.840.114 [id number] Univers 13:38:13 14:32:35 Roshunda R REHAB SPEC 350.1.13.10 ity of Visit REGIONAL 4.2.7.2.686 Amari as MATERNAL [id number] [address] 2019-05-25 2019-05-25 Outpatient R SONJA [facility] [id number] Univers 13:45:00 13:45:00 ROSHUNDA itkim o f [facility] 2019-05-18 2019-05-19 [email or web address] 1.2.840.114 [id number] Univers 13:23:13 09:36:56 Roshunda R REHAB SPEC 350.1.13.10 ity of Visit REGIONAL 4.2.7.2.686 Amari as MATERNAL [phone] [address] 2019-05-04 2019-05-04 [email or web address] 1.2.840.114 [id number] Univers 13:27:19 14:16:23 Roshunda R REHAB SPEC 350.1.13.10 ity of Visit REGIONAL 4.2.7.2.686 Amari as MATERNAL [phone] [address] 2019-04-27 2019-04-27 [email or web address] 1.2.840.114 [id number] Univers 14:18:56 14:19:03 Roshunda R REHAB SPEC 350.1.13.10 ity of Visit REGIONAL 4.2.7.2.686 Amari as MATERNAL [phone] [facility] ical & CHILD 107 [facility] 2018-12-16 2018-12-16 Abstract CasillasTODD 1.2.840.114 [id number] Univers 00:00:00 00:00:00 Roslucnda R REHAB SPEC 350.1.13.10 ity of REGIONAL 4.2.7.2.686 Amari as MATERNAL [phone] [facility] ical & CHILD [address] [place] [address] 2018-12-15 2018-12-15 Pairer Inspector Ul[facility]ound[facility] 1.2 .840.114 [id number] Univers 11:26:56 11:47:33 Visit Akhil Ruiz REHAB SPEC 350.1.13.10 ity of REGIONAL 4.2.7.2.686 Amari as MATERNAL [phone] [facility] ical & CHILD 369 [facility] 2018-12-08 2018-12-08 Routine TODD [place] 1.2.840.114 [id number] Univers 13:24:25 14:23:27 Antonietanda R REHAB SPEC 350.1.13.10 ity of Visit REGIONAL 4.2.7.2.686 Amari as MATERNAL [phone] [facility] ical & CHILD [address] [place] [address] 2018-11-10 2018-11-10 Initial Casillas, TODD 1.2.840.114 [id number] Univers 14:46:40 15:53:38 Roshunda R REHAB SPEC 350.1.13.10 ity of Visit REGIONAL 4.2.7.2.686 Amari as MATERNAL [phone] Med ical & CHILD [address] [place] [address] 2018-11-10 2018-11-10 Orders Doctor NIKITA 1.2.840.114 [id number] Univers 00:00:00 00:00:00 Only Unassigned, OMA 350.1.13.10 ity of [facility] 4.2.7.2.686 Amari as [phone] [address] Results Test Description Test Time Test Comments Results Result Comments Source POCT URINALYSIS W SPECIFIC GRAVITY 2022-07-05 18:28:00 Test Item Value Reference Range Interpretation Comme nts POCT U SP GRAV (test code = 3255) . 1.005-1.025 POCT PH U (test code = 3254) . 5-8 POCT U LEUK EST (test code = 3263) . Negative - Negative POCT U NIT (test code = 3262) . Negative - Negative POCT U PROT (test code = 3259) neg Negative - Negative POCT U GLU (test code = 3256) neg Negative - Negative POCT U KETONE (test code = 3258) . Negative - Negative POCT U UROBILI (test code = 3260) . 0.2-1 POCT U BILI (test code = 3261) . Negative - Negative POCT U BLD (test code = 3257) . Negative - Negative POCT U COLOR (test code = 3266) . POCT U APPEAR (test code = 3267) . [facility] [id number] 14:00:42 Test Item Value Reference Range Interpretation Comments Case Report (test code Surgical Pathology ? ? = [id number]) ?Case: [id number] ? Authorizing Provider: ?Lucius Ivory MD ? ?Collected: ? 06/11/20223 ?Ordering Location: ? ? Obstetrics and Gynecology ?Received: ?06/12/202213 ? (NIKITA 3A) ?Pathologist: ? Jazmyn Moran MD ?Specimens: ? A) - FALLOPIAN TUBE, LEFT ? B) - FALLOPIAN TUBE, RIGHT ? Final Diagnosis (test e9naaQTxFQTab9lqQFOoyD code = 6954624491) FuZzEwMzNcZnRuYmpcdWMx IHtccnRmMVxlcGljMTAyMD QsVI7pfLiduIm2vEipNKUf ytS2xTRmKQtzc9zfCNV6h7 kpwyhnVYXaHDsvBx2xfUPe kHluFqHvOFAdVGe9nN70RV AjrH7sdXQtWVn8NTAbsHZe nxZlGfScFQIaeUNolYZ1ZH WvKC2tioqaBTqcRXaiKXBe smT0SAQgyPAtM2SfWCCbAX 6dffchHVU2YJjvCGIiUKB2 RnCqDRKsz0Bnrrv3JoFdeV FyZFxwbGFpblxmczIwXHBh kwJGQfGKDDqIO5EKQS2xXN BXJUebVUKKTOdbW2RHIJUB UAUWAGYYA7HOMIcFEhbhqN CvAPCaSO4kYkLONGESNp7R GmQFCRKAIX9WVM4TMKYQFZ gKAOuXZfIYRNRYAWxVMW2A SUZJRURccGFyXHBhciBCLi SQIDySV1WSQK5mXRBKLFdg YyxPWFOhDNUXC14GFaUPRN BRDHWLV1ISV668SXOwbypl HRA6PEqwcBK7GSptpP25kY KjJJBeNH8lDlANUINQAv3Y UwDOOQFSAX5JQX0NAQUWZD wYZUeBWfCNLRQOHYtRQX7C SUZJRURccGFyIEFyaWFuIF BvdXJtZWhkaSBMYWhpamks TG9XMQMfGeGrWCCorZBfbJ xuosLdJRpew8FlS9RlWlMh MFxhbnNpXGRlZmxhbmcxMD PkMLO7amTaIVPiOAppTEKs BCoxNn7ksHIrmCnbCsGjND Syq2mxesAVGPuhEvSbP496 QSFzGPstd5cxi4QzTRRnqY Dvv1P1KTDXeukveAq1s3jr KlYlLwF3sAGuGRnbO3judi OyyBGkH4FmsFUrqSy1cSen F46hb9H7KzddS1hyUEKfRG GqV9GrXA2iFHOvJzh4MEJ5 XXL3KZRjLDDiB4JfAM5pSQ NruYUuHWd0n4ehoWncQQQk VYZ4g8ehZAxprwE2PY7icr 6xsDb6l4elvoArVPDmCVHn tIIYWEBgM0ZyfCbqMo0qsU w7wKipLyvzCJS1Fnb8IF4y es00onv8pEksZRNezvcuIp K6FSktJAHbrybuFLs7RHck GNJozKA3IPLyqMDsC3MiNT IfIK4cvjr6WBK0JNqpUMYj EwK9YJPatOKgCSXpyUxxSW ces613ABQ2KgCeHN0tG6Ji y2S3gL3obYKkFBBirQJwQw WeISNhjs0ztKGlDWxrx9Vj BWC1lqO7rWVhuXHkFRLnAT 82Ajzza5DwFyojTWI8FMDa jdNmb3Rye8bfClGairPlI8 mpZ8QnOPPhUZXpIKHvPvOj auJls0Bgs9MwmYTgpAy6t7 qsILBuOZSrjWeyg0faQON6 UANsA7S6mXAjd9pdPBxdNP OnaLL0mfA3JOJswOHtB7Kw oF7sDLChJW4cybl0k3wiUC S6CPivCRSoGeB7zuU8QBMa cBFkGXAemHumQNhca524CS E7AoKuMRLfr0UbO8RrxWba H15keWtdP46wJXEaeBqcgN 7llVwnjJ4nCzWhEpKqWCvh bFxwbGFpblxmMVxmczIwXG hxmzsyPOQdRNfvK8lvBvEs SHQfiPruNXwsa9NmMORbKG NmMlxmczIwXHBhciBJIGhh qqJesYZrr09yRHyrhVIdFH IiQDusOLFpoNgqd5UtQ6nl FA5bL6HmqSNewcUvykUwSH heNSGtv1v7qKGkgZncf6Ne cRRmIW61ndRwAFAeRRS4QP Kwi2kbAO94euynJiNfcG33 hoXsabAwNMNaf3ymU9zlwW Sov8Fml2MqzzHcGWzpd7Ty ZC3ijAPpebsmuYF5BCEdnM LfnjLcdcC6rQbiFMEmtO8x dD9oeAoboA2kGtZeTnNaXU pnYE6iUADcH1tasOWyXLNn LMKeT6ooYmSphD8ytXckRb worzI5QDFhds93 Clinical Information 37 y.o. BTL s/p (test code = 4570538361) Gross Description (test z1grbYWqPQUptVZhYSTrSz code = 1624221721) dkqaYqAUOskPZdZ3Plyact JCeiWW2qVW1ydKepbKWhpF XwMGGtPaQcz7eyq582rEEa w1yqBTFEodjnnJc0qKgqS3 1xx6T0ChwlJ17vvQSsFGK4 AAQhASLyvALtEDEdDHJ3CS NndFEdS7yoOQXkAJ4mhkqy WCdtPSaiHUPglDY9MKKunS PpF6LlHARsBRlzSUIsolj5 UeWdBe6ndUDguVgpGWhoLs pptPchw7PjrJLkQWpxJQSs VWGnNLvgEAIjB7ZDLCGmOg T8NLSoWwVfOzKSOAP5Zzjq SHEqIOEESFHsBFNvANl6DC R0IwLEJtZtGODqLYQhGPYz WWVeQF5oFXnicYEmJActMs kuIQlyD075LQehSGEnO6Uv X1McNYqxFAV7HPJbNqIzNR XwSF9BHrYiDPUtBmMlUSLd GUk6KJy8RQ9XIsJuQKGuIT a9EWu0KUVwYSu0TZqtVR9Y KEF5YyQ0ASUwSSmpDBF5PE UhWDs9KQXbKNwgxzOxUUxd TzisAGuaJ29mqRGxEBipoM FpblxmczIwIFNQRUNJTUVO CCNkyEWyRAGuyeWhq0RsKG ravZeoONGnAcGfn3BlTMow xXmlZPQuEnTcoEifsW2bUk FaDQWJeFTldA2xgoYARZta SWXpR7VrwkMmCDbnNZLjsm 2zcCoiJXjdDmHwLRDgs6b3 mCA6jZByfSA5wBGcrJrnUX 7ywPTtPCYHHC55vRUyfxgy KjBdpMxstGxtliF5oDAkKR SqNBK1SoTywsAoP42ah8fk oCWng0VcJMYulS0reXVdrC UvPXAyeqzpq3KgvYNuoIKl QwUkCYpfa9QxQT7ejTDhTB AcFF03BSMdVBluUMifzkq4 vHBdbFMfBkYmH25kzT0nMK tjrBI7GABuPJzhcEOcVIhr AULjelacxQx8CACjD0Llk6 7vJVG3ljIfGUSlGQaodWUd XXJgwzbvHZzyb1ZduLkscQ 1fBX5zdimeTmhpHEE0dTXp fHJqXKSpmk7eRVInzWHae8 AfwEA2fIObVXXfA4Msk05a ZHFpANZcoSAnkZF6PTSdoI 0kNBVyu5gjbIdry2CflCAe WC6wyTKso3mjAOJewPYrGH J9NGhthHSoOEBuFOXxHKks YmRTMxHeOxT4NwmhPhV8Tl P0NSk8TRSNAfGiBtAaNkH7 WMK0KBDoAPz6FZm9IIpOEf VsVsFqBZJbSoncTYP7VLq9 OEvnsTWbBOwpj4FtXrVeNP FhPCxukxN4ASYwsuSvr1Sr CTUnOTSoK9naQcBxPPFYMV ICBA7WKdIAPYUezqnoNLKi XUMsNhCiKQIbA7hnTzBnLQ CmScBmZZZyC8xqGQYyCMQz IWykXQQqWbFiW5XzW2aoRH 4gQiBpcyByZWNlaXZlZCBp aiKgb9NeHBrgkwQkHGBbvP VkIHdpdGggdGhlIHBhdGll uiYsaaHuAC0fKTRIHRPkhM 0dVSVqSJTbHNokk0QrCO7d dHViZSwgcmlnaHQiIGFuZC Pcc98wsWN0meKpDoTvDKQl jjnuXWX2LL7qpLjoqgNaZX rfTL27CN4rPKGcxRaufAhk xiG9hURbILbrIsJiX78ciM 4jgNUpE6KaYIQ2JDGmVMKx bSBpbiBkaWFtZXRlcikgd2 paN8vjzBPun3ObbZKvjIxm c1DyfQwfhvBiOGGmUZTaxq FsfBQ5AA5evKloyytcH3Zj g0KcwMO1wlNedKNwu5QabP NjM0R1UIU2xsZaY0ToKnOn XdIdzxQmGM54QIFribPcd4 RqqBibbpPzGEXnOXA8Kq8e cOEjWBVwtlBBTI7zyExuIY oinO8zXHd7sGaaUC7jIJir BG1ejCrgELBwVPCYT4Sdk2 qquSayo5ZvvDPmCS97AHVu zGWdAIJ2JQ6bwDzcKMJ9 Disclaimer (test code = k4ilaRJqNFJnc3gtQKSnwY [id number]) FuZzEwMzNcZnRuYmpcdWMx FBizvxQyXNybv4UzB1EcBm AwMFxhbnNpXGRlZmxhbmcx HXFdASJ9kkLnSLJiBTmrSB HvRVheBn4ngCBykYahKyEf PADgx6sciiJJAIhtJiLqV8 64ACMfPQbpo5dkr1VzGHGb zIAph2I2HHTNapunrGv3fU spE78qr3H9GgrvO1jnYMZj KGEmL1OxOX2uLEWgZjr3VE Q1WHX7MGClGOEmE7RrSD7l HMEdhGQuYTc9m7hwcHqpAU YwKGA3y9vaVXxyskAdWF0m ar0lcBq8j9mkkzBuRWNwZR BpqUMZYLClT8NutVfvPo2o qAm0aXjaEkoaTGU0Pwy5DS 4oyz89sjg4hNqxMZTpxaot OmO6JQilWSQilrzgNPi3NG xxKKMrmRH5OFHusCFiU3Gz PPXaQL1tjsr6LJS3UAykRF CcFqV0LREtiKEkJNSpiAny MDkbu023BCQ5AbOwCZ9lJ6 Kxj7S9jT3thKVuJJNogRZp SuYjOVYiii1qeFTyZDlzl2 EdRMI9phM5lHIkdEPcNPDd EQ21Oafqq1QqNpnqp5OhX9 5yeMY6NQrgo1nwLO7iRfP6 lnQhGBxxq8iciN9oViF9MY iuCK1lDJ8zWTUvsA9rglzu XHBnYnJkcmhlYWRccGdicm YjVj1maBhnIEL7PIdaB3sr aG6hXfI7WKpxU2frtT6rNH n9SDreaEI5NTWzgJ3nGA4n rsrqc8ihLJvzBHonUYGvts N9qrN8QHYcbQXaX3YoiS4w DLWkLS0qlsbqv7vfZKY1RZ tmGZGdJEF8QmXiVWSvn6Bg qrr4OiZed0JdjJBhSZmsJ6 4fx533HFTommYqQ3lkqYCz hpliiREndqajNNucfyR1SG CkvbBqc3FeHPMnWIL3TWdx POywbTUeJZRiqZohw8tpI8 RscGFyXHBsYWluXGYxXGZz MjBcbGFuZzEwMzNcaGljaF jbMWneUoBrHQZtODdqG4dx BuLqW5EnDGYlNaYzdGEiD8 ggVGhpcyByZXBvcnQgbWF5 RKdwN8t8OHRblmJvvXi8gy KzTbNiDIUyGXE3CEhqyDXp KWWyt6EgfdwvdCOyOa5lwL JpLPZbwQ7fJOTlFOQgKPvf KE5zmSz2FVHHlSZzuVOcCt OVRDSqLP26xqUiCUSLssql h9F1GBkeHDYeo4MlbJJyC3 scm4YiRQWpx53cIZ4je9Z3 q3enBRR1RG0qn5ZxJWMwmJ TfsLRgCNTrz9Todfxtm1Vk OLPmmfJvv0KnIJTzjcBaqV WfPEPcjuKfur7firUzZIVu ALWtR5HggdqqoDemiuEnNU Euon5zlpBiTKI4YDAAWNRo TTMly2TfrT0ihKYLSSK5zH Tyje5ffwCBqFRmXZVdfj18 RZFuJD3nR8qaQGDiRNSnmj HltYHsb3EsMUEzxTX6vTDr ZD8FZiZPg98tHIKoJTYEki FnBVRybNrttNW3wvP4dN2w IChGREEpLlx+IFRoZSBGRE FbDZ9fbkSzl2EfcvTinShg FSHlgOJry5AtbWDxi1RwsB vff3XcjAPqdWJtYP3jSHMr clxwYXIgVVRNQiBMYWJvcm A3t6WyFHXaZHKbJTW6tMga upb7QAMctX0nRFHxN6avwy msOQrqBBXdi3PuxV9xaLKA gNKnj0OrrVPqnFBZuHUvWY 1izyItETfBASjRYCS9gvMx HROdi8CnIAdgP0vvG79qhN pnkOo5iLH8ALW2vY7bIam+ IFxwYXJccGFyIEFwcHJvcH CaIPOgmQltglQsZ7YsnfRh dJ0ynZCzzdCtPJ4yWM7eG7 V7pENgMHVltrLbf3drCXhq dmUgYmVlbiByZXZpZXdlZC Dji9FnRIwvJAJ2UMhzarCb bmNsdWRpbmcgSCZFLCBTcG NzoVTxZSR6VQulwrJbmuUk MS7qvV1doZrzgI0hiWQdxJ P3qfobJLHsVCYjxSalLJAt FB3vwKRfMQTkzsCAaHzxbA VuzV2eN3HuIKYhTNXygm5o FPYxfK7nLUvve4RfomfcWK DiTBRvZCXokeHsuh2vDJGy wKJMJP3STGucsGPbt0Zuic YqM6kAZJS3MTPgQgMrMruj BFSabVHilVSnXLRmkf83JB YqoS8syBbbFSHrfE2xmQ4p kHuwrQ8eXsZjMvGgEVflCC 1wVRYrV0wakVGzWSWsSCWz Q7vaYpSvuG6rqDesQVbhIh HuZxTxIEcqSQO7eD== Embedded Images (test code = 7111517828) [facility] (D) IMMUNE [id number] 06:48:04 Test Item Value Reference Range Interpretation Comments RHIG CANDIDATE? No- see comment Patient i s not a (test code = candidate for R hIg- 5188) Patient is Rh Positive.Perfor med at [facility] Laboratory [facility] Blood [address] [place], [place] [address]Toll Free: [phone] A No. [id number] [facility] (D) IMMUNE [id number] 06:48:04 Test Item Value Reference Range Interpretation Comments RHIG CANDIDATE? No- see comment Patient i s not a (test code = candidate for R hIg- 5188) Patient is Rh Positive.Perfor med at [facility] Laboratory [facility] Blood [address] [place], [place] [id number] Free: [phone] A No. [id number] [facility] CORD [id number] 03:28:12 Test Item Value Reference Range Interpretation Comments VENOUS BASE EXCESS, -3.1 mEq/L CORD (test code = 0971040740) VENOUS PH, CORD (test 7.31 7.25-7.45 code = 5479703269) VENOUS PC02, CORD 48 See_Comment [Automate d message] The (test code = system which ge nerated 4221979303) this result tra nsmitted reference range : 27 - 49 mmHg. The refer ence range was not used to interpret this result as normal/abnormal . VENOUS PO2, CORD (test 18 See_Comment [Aut omated message] The code = 4760371053) system [facility] generated this result tra nsmitted reference range : 17 - 41 mmHg. The refer ence range was not used to interpret this result as normal/abnormal . VENOUS BICARBONATE, 24 See_Comment [Automa skylar message] The CORD (test code = system whi ch generated 0168139250) this result tra nsmitted reference range : 12 - 29 mEq/L. The refe rence range was not used to interpret this result as normal/abnormal . [facility] CORD [id number] 03:28:12 Test Item Value Reference Range Interpretation Comments VENOUS BASE EXCESS, -3.1 mEq/L CORD (test code = 8948558808) VENOUS PH, CORD (test 7.31 7.25-7.45 code = 9467713252) VENOUS PC02, CORD 48 See_Comment [Automate d message] The (test code = system which ge nerated 3432303295) this result tra nsmitted reference range : 27 - 49 mmHg. The refer ence range was not used to interpret this result as normal/abnormal . VENOUS PO2, CORD (test 18 See_Comment [Aut omated message] The code = 3423689125) system [facility] generated this result tra nsmitted reference range : 17 - 41 mmHg. The refer ence range was not used to interpret this result as normal/abnormal . VENOUS BICARBONATE, 24 See_Comment [Automa skylar message] The CORD (test code = system [facility] ch generated 8656213230) this result tra nsmitted reference range : 12 - 29 mEq/L. The refe rence range was not used to interpret this result as normal/abnormal . [facility] CORD [id number] 03:24:31 Test Item Value Reference Range Interpretation Comments BASE EXCESS, CORD -5.4 mEq/L (test code = 8026097241) AC PH, CORD (BEAKER) 7.24 7.18-7.38 (test code = 7496016366) PC02, CORD (test code 55 See_Comment [Auto mated message] The = 6754155987) system which g enerated this result transmit skylar reference range : 32 - 66 mmHg. The refer ence range was not used to interpret this result as normal/abnormal . PO2, CORD (test code 15 See_Comment [Autom ated message] The = 1760886816) system which g enerated this result transmit skylar reference range : 10 - 30 mmHg. The refer ence range was not used to interpret this result as normal/abnormal . BICARBONATE, CORD 23 See_Comment [Automate d message] The (test code = system which ge nerated this 8510684553) result transmit skylar reference range : 17 - 27 mEq/L. The refe rence range was not used to interpret this result as normal/abnormal . [facility] CORD [id number] 03:24:31 Test Item Value Reference Range Interpretation Comments BASE EXCESS, CORD -5.4 mEq/L (test code = 2879058524) AC PH, CORD (BEAKER) 7.24 7.18-7.38 (test code = 9741454917) PC02, CORD (test code 55 See_Comment [Auto mated message] The = 5880408560) system which g enerated this result transmit skylar reference range : 32 - 66 mmHg. The refer ence range was not used to interpret this result as normal/abnormal . PO2, CORD (test code 15 See_Comment [Autom ated message] The = 4908005131) system which g enerated this result transmit skylar reference range : 10 - 30 mmHg. The refer ence range was not used to interpret this result as normal/abnormal . BICARBONATE, CORD 23 See_Comment [Automate d message] The (test code = system which ge nerated this 7587349985) result transmit skylar reference range : 17 - 27 mEq/L. The refe rence range was not used to interpret this result as normal/abnormal . [facility] ONLY - SYPHILIS [id number] 15:10:13 Test Item Value Reference Range Interpretation Comments Syphilis IgG/IgM (test Non-reactive Non-reactive code = 65385-5) CLIFF (test code = CLIFF) Non-reactive - No serologic evidence of T. pallidum infection. Cannot exclude incubating or early syphilis. Submit a second specimen in 2-4 weeks if syphilis is clinically suspected. Equivocal - Further testing to follow. Reactive - Further testing to follow. Lab Interpretation (test Normal code = 87919-2) [facility] ONLY - SYPHILIS [id number] 15:10:13 Test Item Value Reference Range Interpretation Comments Syphilis IgG/IgM (test Non-reactive Non-reactive code = 65480-2) CLIFF (test code = CLIFF) Non-reactive - No serologic evidence of T. pallidum infection. Cannot exclude incubating or early syphilis. Submit a second specimen in 2-4 weeks if syphilis is clinically suspected. Equivocal - Further testing to follow. Reactive - Further testing to follow. Lab Interpretation (test Normal code = 01809-7) [facility] Surface [id number] 11:08:31 Test Item Value Reference Range Interpretation Comments HBsAg Semi-Quantitative (test code = 0.05 Negative 5195-3) [facility] [id number] 11:08:31 Test Item Value Reference Range Interpretation Comments HBsAg Semi-Quantitative (test code = 0.05 Negative 5195-3) [facility] WITH [id number] 10:05:08 Test Item Value Reference Range Interpretation Comments WBC (test code = 15.01 See_Comment H [Automated 6690-2) message] The system which generated this result transmit skylar reference range : 4.30 - 11.10 10*3/?L. The reference range was not used to interpret this result as normal/abnormal . RBC (test code = 3.43 See_Comment L [Automated 789-8) message] The system which generated this result transmit skylar reference range : 3.93 - 5.25 10*6/?L. The reference range was not used to interpret this result as normal/abnormal . HGB (test code = 10.2 g/dL 11.6-15.0 L 718-7) HCT (test code = 30.5 % 35.7-45.2 L 4544-3) MCV (test code = 88.9 fL 80.6-95.5 787-2) MCH (test code = 29.7 pg 25.9-32.8 785-6) MCHC (test code = 33.4 g/dL 31.6-35.1 786-4) RDW-SD (test code = 45.6 fL 39.0-49.9 51133-7) RDW-CV (test code = 14.7 % 12.0-15.5 788-0) PLT (test code = 376 See_Comment H [Automated 777-3) message] The system which generated this result transmit skylar reference range : 166 - 358 10*3/ ?L. The reference range was not u sed to interpret th is result as normal/abnormal . MPV (test code = 10.2 fL 9.5-12.9 07258-9) NRBC/100 WBC (test 0.0 See_Comment [Automat ed code = 9513021242) message] The system which generated this result transmit skylar reference range : 0.0 - 10.0 /100 WBCs. The reference range was not used to interpret this result as normal/abnormal . NRBC x10^3 (test code See_Comment [Auto mated = 2310483931) message] The system which generated this result transmit skylar reference range : 10*3/?L. The reference range was not used to interpret this result as normal/abnormal . GRAN MAT (NEUT) % 76.8 % (test code = 770-8) IMM GRAN % (test code 1.20 % = 9086059055) LYMPH % (test code = 15.7 % 736-9) MONO % (test code = 5.1 % 5905-5) EOS % (test code = 0.9 % 713-8) BASO % (test code = 0.3 % 706-2) GRAN MAT x10^3(ANC) 11.53 10*3/uL 1.88-7.09 H (test code = 1912229811) IMM GRAN x10^3 (test 0.18 10*3/uL 0.00-0.06 H code = 8706129191) LYMPH x10^3 (test code 2.35 10*3/uL 1.32-3.29 = 731-0) MONO x10^3 (test code 0.76 10*3/uL 0.33-0.92 = 742-7) EOS x10^3 (test code = 0.14 10*3/uL 0.03-0.39 711-2) BASO x10^3 (test code 0.05 10*3/uL 0.01-0.07 = 704-7) Lab Interpretation Abnormal (test code = 91221-6) [facility] WITH [id number] 10:05:08 Test Item Value Reference Range Interpretation Comments WBC (test code = 15.01 See_Comment H [Automated 6690-2) message] The system which generated this result transmit skylar reference range : 4.30 - 11.10 10*3/?L. The reference range was not used to interpret this result as normal/abnormal . RBC (test code = 3.43 See_Comment L [Automated 789-8) message] The system which generated this result transmit skylar reference range : 3.93 - 5.25 10*6/?L. The reference range was not used to interpret this result as normal/abnormal . HGB (test code = 10.2 g/dL 11.6-15.0 L 718-7) HCT (test code = 30.5 % 35.7-45.2 L 4544-3) MCV (test code = 88.9 fL 80.6-95.5 787-2) MCH (test code = 29.7 pg 25.9-32.8 785-6) MCHC (test code = 33.4 g/dL 31.6-35.1 786-4) RDW-SD (test code = 45.6 fL 39.0-49.9 78816-2) RDW-CV (test code = 14.7 % 12.0-15.5 788-0) PLT (test code = 376 See_Comment H [Automated 777-3) message] The system which generated this result transmit skylar reference range : 166 - 358 10*3/ ?L. The reference range was not u sed to interpret th is result as normal/abnormal . MPV (test code = 10.2 fL 9.5-12.9 21183-0) NRBC/100 WBC (test 0.0 See_Comment [Automat ed code = [id number]) message] The system which generated this result transmit skylar reference range : 0.0 - 10.0 /100 WBCs. The reference range was not used to interpret this result as normal/abnormal . NRBC x10^3 (test code See_Comment [Auto mated = [id number]) message] The system which generated this result transmit skylar reference range : 10*3/?L. The reference range was not used to interpret this result as normal/abnormal . GRAN MAT (NEUT) % 76.8 % (test code = 770-8) IMM GRAN % (test code 1.20 % = [id number]) LYMPH % (test code = 15.7 % 736-9) MONO % (test code = 5.1 % 5905-5) EOS % (test code = 0.9 % 713-8) BASO % (test code = 0.3 % 706-2) GRAN MAT x10^3(ANC) 11.53 10*3/uL 1.88-7.09 H (test code = [id number]) IMM GRAN x10^3 (test 0.18 10*3/uL 0.00-0.06 H code = [id number]) LYMPH x10^3 (test code 2.35 10*3/uL 1.32-3.29 = 731-0) MONO x10^3 (test code 0.76 10*3/uL 0.33-0.92 = 742-7) EOS x10^3 (test code = 0.14 10*3/uL 0.03-0.39 711-2) BASO x10^3 (test code 0.05 10*3/uL 0.01-0.07 = 704-7) Lab Interpretation Abnormal (test code = 03506-3) [id number] 09:47:00 Test Item Value Reference Range Interpretation Comments ABO & RH (test code = 20) A POSITIVE IAT (test code = 1185) Negative [facility] and Screen - ONCE [id number] 09:47:00 Test Item Value Reference Range Interpretation Comments ABO & RH (test code = 20) A POSITIVE IAT (test code = 1185) Negative [facility] URINALYSIS W SPECIFIC [id number] 21:17:00 Test Item Value Reference Range Interpretation Comments POCT U SP GRAV (test code = 3255) . 1.005-1.025 POCT PH U (test code = 3254) . 5-8 POCT U LEUK EST (test code = 3263) . Negative - Negative POCT U NIT (test code = 3262) . Negative - Negative POCT U PROT (test code = 3259) 1+ Negative - Negative POCT U GLU (test code = 3256) Neg Negative - Negative POCT U KETONE (test code = 3258) . Negative - Negative POCT U UROBILI (test code = 3260) . 0.2-1 POCT U BILI (test code = 3261) . Negative - Negative POCT U BLD (test code = 3257) . Negative - Negative POCT U COLOR (test code = 3266) . POCT U APPEAR (test code = 3267) . [facility] URINALYSIS W SPECIFIC [id number] 22:36:00 Test Item Value Reference Range Interpretation Comments POCT U SP GRAV (test code = 3255) . 1.005-1.025 POCT PH U (test code = 3254) . 5-8 POCT U LEUK EST (test code = 3263) . Negative - Negative POCT U NIT (test code = 3262) . Negative - Negative POCT U PROT (test code = 3259) 1+ Negative - Negative POCT U GLU (test code = 3256) 50 Negative - Negative POCT U KETONE (test code = 3258) . Negative - Negative POCT U UROBILI (test code = 3260) . 0.2-1 POCT U BILI (test code = 3261) . Negative - Negative POCT U BLD (test code = 3257) . Negative - Negative POCT U COLOR (test code = 3266) . POCT U APPEAR (test code = 3267) . [facility] URINALYSIS W SPECIFIC [id number] 21:48:00 Test Item Value Reference Range Interpretation Comments POCT U SP GRAV (test code = 3255) . 1.005-1.025 POCT PH U (test code = 3254) . 5-8 POCT U LEUK EST (test code = 3263) . Negative - Negative POCT U NIT (test code = 3262) . Negative - Negative POCT U PROT (test code = 3259) neg Negative - Negative POCT U GLU (test code = 3256) neg Negative - Negative POCT U KETONE (test code = 3258) . Negative - Negative POCT U UROBILI (test code = 3260) . 0.2-1 POCT U BILI (test code = 3261) . Negative - Negative POCT U BLD (test code = 3257) . Negative - Negative POCT U COLOR (test code = 3266) . POCT U APPEAR (test code = 3267) . [facility] URINALYSIS W SPECIFIC [id number] 21:48:00 Test Item Value Reference Range Interpretation Comments POCT U SP GRAV (test code = 3255) . 1.005-1.025 POCT PH U (test code = 3254) . 5-8 POCT U LEUK EST (test code = 3263) . Negative - Negative POCT U NIT (test code = 3262) . Negative - Negative POCT U PROT (test code = 3259) neg Negative - Negative POCT U GLU (test code = 3256) neg Negative - Negative POCT U KETONE (test code = 3258) . Negative - Negative POCT U UROBILI (test code = 3260) . 0.2-1 POCT U BILI (test code = 3261) . Negative - Negative POCT U BLD (test code = 3257) . Negative - Negative POCT U COLOR (test code = 3266) . POCT U APPEAR (test code = 3267) . [facility] URINALYSIS W SPECIFIC [id number] 16:48:00 Test Item Value Reference Range Interpretation Comments POCT U SP GRAV (test code = 3255) . 1.005-1.025 POCT PH U (test code = 3254) . 5-8 POCT U LEUK EST (test code = 3263) . Negative - Negative POCT U NIT (test code = 3262) . Negative - Negative POCT U PROT (test code = 3259) trace Negative - Negative POCT U GLU (test code = 3256) neg Negative - Negative POCT U KETONE (test code = 3258) . Negative - Negative POCT U UROBILI (test code = 3260) . 0.2-1 POCT U BILI (test code = 3261) . Negative - Negative POCT U BLD (test code = 3257) . Negative - Negative POCT U COLOR (test code = 3266) . POCT U APPEAR (test code = 3267) . [facility] URINALYSIS W SPECIFIC [id number] 16:48:00 Test Item Value Reference Range Interpretation Comments POCT U SP GRAV (test code = 3255) . 1.005-1.025 POCT PH U (test code = 3254) . 5-8 POCT U LEUK EST (test code = 3263) . Negative - Negative POCT U NIT (test code = 3262) . Negative - Negative POCT U PROT (test code = 3259) trace Negative - Negative POCT U GLU (test code = 3256) neg Negative - Negative POCT U KETONE (test code = 3258) . Negative - Negative POCT U UROBILI (test code = 3260) . 0.2-1 POCT U BILI (test code = 3261) . Negative - Negative POCT U BLD (test code = 3257) . Negative - Negative POCT U COLOR (test code = 3266) . POCT U APPEAR (test code = 3267) . [facility] URINALYSIS W SPECIFIC [id number] 16:08:00 Test Item Value Reference Range Interpretation Comments POCT U SP GRAV (test code = . 1.005-1.025 3255) POCT PH U (test code = 3254) . 5-8 POCT U LEUK EST (test code = . Negative - Negative 3263) POCT U NIT (test code = 3262) . Negative - Negative POCT U PROT (test code = 3259) trace Negative - Negative POCT U GLU (test code = 3256) negative Negative - Negative POCT U KETONE (test code = 3258) . Negative - Negative POCT U UROBILI (test code = . 0.2-1 3260) POCT U BILI (test code = 3261) . Negative - Negative POCT U BLD (test code = 3257) . Negative - Negative POCT U COLOR (test code = 3266) . POCT U APPEAR (test code = 3267) . [facility] URINALYSIS W SPECIFIC [id number] 19:02:00 Test Item Value Reference Range Interpretation Comments POCT U SP GRAV (test code = . 1.005-1.025 3255) POCT PH U (test code = 3254) 7 mg/dl 5-8 POCT U LEUK EST (test code = negative Negative - Negative 3263) POCT U NIT (test code = 3262) negative Negative - Negative POCT U PROT (test code = 3259) 1+ Negative - Negative POCT U GLU (test code = 3256) negative Negative - Negative POCT U KETONE (test code = 3258) negative Negative - Negative POCT U UROBILI (test code = . 0.2-1 3260) POCT U BILI (test code = 3261) . Negative - Negative POCT U BLD (test code = 3257) negative Negative - Negative POCT U COLOR (test code = 3266) yellow POCT U APPEAR (test code = 3267) clear [facility] URINALYSIS W SPECIFIC [id number] 18:16:00 Test Item Value Reference Range Interpretation Comments POCT U SP GRAV (test code = 3255) . 1.005-1.025 POCT PH U (test code = 3254) . 5-8 POCT U LEUK EST (test code = 3263) . Negative - Negative POCT U NIT (test code = 3262) . Negative - Negative POCT U PROT (test code = 3259) Trace Negative - Negative POCT U GLU (test code = 3256) Neg Negative - Negative POCT U KETONE (test code = 3258) . Negative - Negative POCT U UROBILI (test code = 3260) . 0.2-1 POCT U BILI (test code = 3261) . Negative - Negative POCT U BLD (test code = 3257) . Negative - Negative POCT U COLOR (test code = 3266) . POCT U APPEAR (test code = 3267) . [facility] URINALYSIS W SPECIFIC [id number] 18:16:00 Test Item Value Reference Range Interpretation Comments POCT U SP GRAV (test code = 3255) . 1.005-1.025 POCT PH U (test code = 3254) . 5-8 POCT U LEUK EST (test code = 3263) . Negative - Negative POCT U NIT (test code = 3262) . Negative - Negative POCT U PROT (test code = 3259) Trace Negative - Negative POCT U GLU (test code = 3256) Neg Negative - Negative POCT U KETONE (test code = 3258) . Negative - Negative POCT U UROBILI (test code = 3260) . 0.2-1 POCT U BILI (test code = 3261) . Negative - Negative POCT U BLD (test code = 3257) . Negative - Negative POCT U COLOR (test code = 3266) . POCT U APPEAR (test code = 3267) . [facility] [id number] 17:37:09 Test Item Value Reference Range Interpretation Comments Rubella screen IgG Positive Negative (test code = 7054107371) CLIFF (test code = CLIFF) Positive - Indicates the patient was exposed to Rubella through infection or vaccination.Negative - Indicates the patient could be susceptible to Rubella infection.Equivocal - A second specimen should be sent. [facility] [id number] 17:37:09 Test Item Value Reference Range Interpretation Comments VZV IgG antibody Positive Negative (test code = 71290-4) CLIFF (test code = CLIFF) Positive - Indicates the patient was exposed to VZV through infection or vaccination.Negative - Indicates the patient could be susceptible to VZV infection.Equivocal - A second specimen should be sent for testing. [facility] SYPHILIS [id number] 14:26:44 Test Item Value Reference Range Interpretation Comments Syphilis IgG/IgM (test Non-reactive Non-reactive code = 82450-7) CLIFF (test code = CLIFF) Non-reactive - No serologic evidence of T. pallidum infection. Cannot exclude incubating or early syphilis. Submit a second specimen in 2-4 weeks if syphilis is clinically suspected. Equivocal - Further testing to follow. Reactive - Further testing to follow. Lab Interpretation (test Normal code = 14380-8) [facility] WITH [id number] 07:45:04 Test Item Value Reference Range Interpretation Comments HIV Negative Negative Semi-quantitative (test code = 70630-4) CLIFF (test code = Non-reactive for HIV-1 CLIFF) antigen and HIV-1/HIV-2 antibodies. ?No laboratory evidence of HIV infection. ?Repeat in 2-4 weeks if acute HIV infection is suspected. [facility], BLOOD [id number] 07:12:29 Test Item Value Reference Range Interpretation Comments ABO & RH (test code A POSITIVE Performe d at [facility] = 20) Laboratory Serv [facility] s [id number] Free: [phone] A No. [id number] IAT (test code = Negative Performed a t [facility] 1185) [facility] s [id number] Free: [phone] A No. [id number] [facility] Hospital[facility] [id number] 05:47:55 Test Item Value Reference Range Interpretation Comments HCV Ab (test code = 30255-8) Negative HCV Semi-Quantitative (test code = 53606-3) [facility] [id number] 05:30:29 Test Item Value Reference Range Interpretation Comments HBsAg Semi-Quantitative (test code = Negative Negative 5195-3) [facility] WITH [id number] 04:57:45 Test Item Value Reference Range Interpretation Comments WBC (test code = See_Comment [Automated message] 6690-2) The system VO[employer] generated this result transmitted ref erence range: 4.30 - 1 1.10 10*3/?L. The re ference range was not u sed to interpret this result as normal/abnor mal. RBC (test code = See_Comment [Automated message] 789-8) The system [employer] generated this result transmitted ref erence range: 3.93 - 5 .25 10*6/?L. The re ference range was not u sed to interpret this result as normal/abnor mal. HGB (test code = 12.6 g/dL 11.6-15 718-7) HCT (test code = 36.9 % 35.7-45.2 4544-3) MCV (test code = 89.1 fL 80.6-95.5 787-2) MCH (test code = 30.4 pg 25.9-32.8 785-6) MCHC (test code = 34.1 g/dL 31.6-35.1 786-4) RDW-SD (test code 41.1 fL 39-49.9 = 35623-4) RDW-CV (test code 12.6 % 12-15.5 = 788-0) PLT (test code = See_Comment [Automated message] 777-3) The system [employer] generated this result transmitted ref erence range: 166 - 35 8 10*3/?L. The re ference range was not u sed to interpret this result as normal/abnor mal. MPV (test code = 9.9 fL 9.5-12.9 41335-6) NRBC/100 WBC (test See_Comment [Automat ed message] code = 4463345915) The [employer] which generated this result transmitted ref erence range: 0.0 - 10 .0 /100 WBCs. The refer ence range was not u sed to interpret this result as normal/abnor mal. NRBC x10^3 (test See_Comment [Automated message] code = 4409043779) The syste m which generated this result transmitted ref erence range: 10*3/?L. The reference range was not used to interpr et this result as normal/abnormal . GRAN MAT (NEUT) % 73.7 % (test code = 770-8) IMM GRAN % (test 0.20 % code = 8018057508) LYMPH % (test code 19.3 % = 736-9) MONO % (test code 5.4 % = 5905-5) EOS % (test code = 1.1 % 713-8) BASO % (test code 0.3 % = 706-2) GRAN MAT 6.40 10*3/uL 1.88-7.09 x10^3(ANC) (test code = 8177826082) IMM GRAN x10^3 0-0.06 (test code = 7303744269) LYMPH x10^3 (test 1.68 10*3/uL 1.32-3.29 code = 731-0) MONO x10^3 (test 0.47 10*3/uL 0.33-0.92 code = 742-7) EOS x10^3 (test 0.10 10*3/uL 0.03-0.39 code = 711-2) BASO x10^3 (test 0.03 10*3/uL 0.01-0.07 code = 704-7) [facility] [id number] 19:50:00 Test Item Value Reference Range Interpretation Comments POCT PREG (test code = 1605) Positive On board controls acceptable with C Yes Line (test code = 3574) POCT PREG LOT # (test code = 3575) POCT PREG TEST DATE (test code = 3576) [facility] URINALYSIS W SPECIFIC [id number] 19:49:00 Test Item Value Reference Range Interpretation Comments POCT U SP GRAV (test code = * 1.005-1.025 A 3255) POCT PH U (test code = 3254) 6 mg/dl 5-8 POCT U LEUK EST (test code = 1+ Negative - Negative 3263) POCT U NIT (test code = 3262) negative Negative - Negative POCT U PROT (test code = 3259) trace Negative - Negative POCT U GLU (test code = 3256) negative Negative - Negative POCT U KETONE (test code = 3258) negative Negative - Negative POCT U UROBILI (test code = * 0.2-1 3260) POCT U BILI (test code = 3261) * Negative - Negative POCT U BLD (test code = 3257) small Negative - Negative POCT U COLOR (test code = 3266) POCT U APPEAR (test code = 3267) Lab Interpretation (test code = Abnormal 82651-7) [facility]
[2023-02-25 13:38] LABS: Absolute Lymphocytes (CBC) 1.6 K/uL (0.7-4.9); Hematocrit 39.9 % (36.0-45.0); Lymphocytes % 13.9 % (15.3-44.8); MCV 89.3 fL (80-100); MPV 7.3 fL (7.6-11.3); Platelets 304 thou/uL (152-406); RBC Red Blood Cell Count 4.47 M/uL (3.86-4.86)
[2023-02-25] MEDS ORDERED: FAMOTIDINE 20 MG/2 ML VIAL IV ONE (13:45)
[2023-02-25] MEDS ORDERED: KETOROLAC 30 MG/ML INJ ONE (13:45)
[2023-02-25] MEDS ORDERED: ONDANSETRON 4 MG/2 ML VIAL ONE (13:45)
[2023-02-25 13:59] LABS: Specific Gravity > 1.030 (1.005-1.030); Urine Clarity Clear (Clear); Urine Color Yellow (Yellow); Urine Glucose Negative (Negative)
[2023-02-25 14:00] LABS: Urine Bilirubin NEGATIVE (Negative); Urine Blood Negative (Negative); Urine Protein NEGATIVE (Negative); Urine Urobilinogen 0.2 mg/dL (0.2-1.0)
[2023-02-25 14:02] LABS: Urine Bacteria None Seen /HPF (<20); Urine Mucus Slight /HPF (None Seen); Urine RBC <5 /HPF (None Seen)
--- NOTE | 2023-02-25 14:29 | RAD REPORT ---
EXAM DESCRIPTION: US - Abdomen Exam Limited - 02/25/2023 2:00 pm CLINICAL HISTORY: ABD PAIN COMPARISON: No comparisons TECHNIQUE: Sonographic grayscale and color flow images of the right upper abdominal quadrant were o btained. FINDINGS: The gallbladder demonstrates multiple small shadowing stones the largest at the fundus anjelica suring 1.2 cm. No pericholecystic fluid or gallbladder wall thickening. The common bile duct is marco l measuring 4 mm. The liver demonstrates no findings of intrahepatic biliary dilatation. IMPRESSION: Cholelithiasis. No other acute findings.
[2023-02-25 14:30] LABS: Albumin 3.6 g/dL (3.4-5.0); Bilirubin Total 0.5 mg/dL (0.2-1.0); Potassium 3.9 mEq/L (3.5-5.1); Protein, Total 7.5 g/dL (6.4-8.2)
--- NOTE | 2023-02-25 15:27 | EDPHYS ---
Physician Documentation [facility] Name: Shelly Gentile Age: 37 yrs Sex: Female : 1985 Arrival Date: 02/25/2023 Time: 12:57 Bed 15 Private MD: ED Physician John Paul Mancilla HPI: 02/25 13:21 This 37 yrs old Female presents to ER via Ambulatory with complaints of Back Pain, ms3 Abdominal Pain. 13:21 37-year-old female with no past medical problems presents emergency department for back ms3 pain that began at midnight last night. Patient states. Sshe has taken Tylenol and ibuprofen without relief of her symptoms patient states her pain is a 9/10 located in the mid back and right upper quadrant. Patient endorses nausea, vomiting. Patient denies fevers or chills. Historical: - Allergies: 13:08 NKA; mb9 - Home Meds: 13:08 None [Active]; mb9 - PMHx: 13:08 None; mb9 - PSHx: 13:09 Ligation of fallopian tube; mb9 - Immunization history:: Adult Immunizations up to date. - Social history:: Smoking status: Patient denies any tobacco usage or history of. ROS: 13:21 Constitutional: Negative for fever, and chills. Neck: Negative for injury, pain, and ms3 swelling, Cardiovascular: Negative for chest pain, and palpitations. Respiratory: Negative for shortness of breath, cough, wheezing, and pleuritic chest pain, 13:21 Skin: Negative for injury, rash, and discoloration, 13:21 Abdomen/GI: Positive for abdominal pain, nausea and vomiting, 13:21 Back: Positive for Mid back pain, 13:21 All other systems are negative, Exam: 13:21 Constitutional: This is a well developed, well nourished patient who is awake, alert, ms3 and in no acute distress. Head/Face: Normocephalic, atraumatic. Neck: Trachea midline, no cervical lymphadenopathy. Supple, full range of motion without nuchal rigidity, or vertebral point tenderness. No Meningismus. Chest/axilla: Normal chest wall appearance and motion. Nontender with no deformity. Cardiovascular: Regular rate and rhythm with a normal S1 and S2. No gallops, murmurs, or rubs. Normal PMI, no JVD. No pulse deficits. Respiratory: Lungs have equal breath sounds bilaterally, clear to auscultation and percussion. No rales, rhonchi or wheezes noted. No increased work of breathing, no retractions or nasal flaring. 13:21 Skin: Warm, dry with normal turgor. Normal color with no rashes, no lesions, and no evidence of cellulitis. 13:21 Abdomen/GI: Inspection: abdomen appears normal, Bowel sounds: normal, Palpation: moderate abdominal tenderness, in the right upper quadrant, Vital Signs: 13:07 BP 130 / 89; Pulse 73; Resp 18; Temp 98.1; Pulse Ox 100% on R/A; Weight 79.38 kg; mb9 Height 5 ft. 2 in. ; Pain 10/10; 14:02 BP 143 / 89; Pulse 50; Resp 17; Pulse Ox 97% on R/A; Pain 9/10; tm6 14:47 BP 109 / 64; Pulse 63; Resp 18; Pulse Ox 97% on R/A; tm6 14:59 Pain 4/10; tm6 13:07 Body Mass Index 32.01 (79.38 kg, 157.48 cm) mb9 13:07 Pain Scale: Adult mb9 14:02 Pain Scale: Adult tm6 14:59 Pain Scale: Adult tm6 MDM: 13:21 Differential diagnosis: Cholelithiasis Cholecystitis versus pancreatitis versus UTI. ms3 13:23 Patient medically screened. ms3 15:27 Data reviewed: vital signs, nurses notes, lab test result(s), radiologic studies, and ms3 as a result, I will discharge patient. I considered the following discharge prescriptions or medication management in the emergency department Medications were administered in the Emergency Department. See MAR. Care significantly affected by the following Social Determinants of Health: Poor access to healthcare and/or lack of insurance. Counseling: I had a detailed discussion with the patient and/or guardian regarding the historical points, exam findings, and any diagnostic results supporting the discharge/admit diagnosis, lab results, radiology results, the need for outpatient follow up, to return to the emergency department if symptoms worsen or persist or if there are any questions or concerns that arise at home. Response to treatment: the patient's symptoms have markedly improved after treatment, and as a result, I will discharge patient. Special discussion: Based on the patient's Hx, exam, and Dx evaluation, there is no indication for emergent surgery or inpatient Tx. It is understood by the patient/guardian that if the Sx's persist or worsen they need to return immediately for re-evaluation. ED course: Discussed labs, ultrasound results with patient. Patient to follow-up with Dr. Franks for cholelithiasis and Dr. Nathan for back pain in 2 to 3 days. Patient understands and agrees with plan. All questions were answered. Return precautions discussed include worsening symptoms, fevers, urinary or bowel incontinence, lower extremity weakness, inability tolerate p.o., or any other concerns. On reevaluation patient symptoms improved, patient is alert and oriented x4, no apparent distress, nontoxic-appearing, ambulatory in emergency department, speaking full sentences. 02/25 13:21 Order name: CBC with Diff; Complete Time: 14:03 ms3 02/25 13:21 Order name: CMP; Complete Time: 14:45 ms3 02/25 13:21 Order name: Lipase; Complete Time: 14:45 ms3 02/25 13:21 Order name: Urinalysis w/ reflexes; Complete Time: 14:45 ms3 02/25 13:21 Order name: US Abdomen Limited; Complete Time: 14:45 ms3 02/25 13:21 Order name: IV Saline Lock; Complete Time: 13:33 ms3 02/25 13:21 Order name: Labs collected and sent; Complete Time: 13:33 ms3 Administered Medications: 14:01 Drug: Famotidine IVP 20 mg IVP once; dilute with 10 mL 0.9% NaCl; give over 2 minutes tm6 Route: IVP; Site: right antecubital; 14:01 Drug: Ondansetron IVP 4 mg IVP once; over 2 minutes Route: IVP; Site: right antecubital;tm6 14:02 Drug: TORadol - Ketorolac IVP 15 mg IVP once Route: IVP; Site: right antecubital; tm6 Disposition Summary: 02/25/23 15:26 Discharge Ordered Notes: Location: Home ms3 Condition: Stable ms3 Diagnosis - Abdominal pain, unspecified ms3 - Low back pain ms3 - Other cholelithiasis without obstruction ms3 Followup: ms3 - With: Luis Franks MD - When: 2 - 3 days - Reason: Recheck today's complaints Followup: ms3 - With: Deepak Nathan DO - When: 2 - 3 days - Reason: Recheck today's complaints Discharge Instructions: - Discharge Summary Sheet ms3 - Abdominal Pain, Adult ms3 - Acute Back Pain, Adult ms3 - Cholelithiasis, [id number]-eg-[id number] ms3 Forms: - Medication Reconciliation Form ms3 - Thank You Letter ms3 - Antibiotic Education ms3 - Prescription Opioid Use ms3 - Patient Portal Instructions ms3 - Leadership Thank You Letter ms3 Signatures: Dispatcher [employer] EDMS John Paul Mancilla DO DO ms3 Sarah Salazar RN RN mb9 Parminder Woodruff RN RN tm6 Corrections: (The following items were deleted from the chart) 13:09 13:08 PSHx: None; magdi mb9
--- NOTE | 2023-02-25 15:27 | ER ---
Nurse's Notes [facility] Name: Shelly Gentile Age: 37 yrs Sex: Female : 1985 Arrival Date: 02/25/2023 Time: 12:57 Bed 15 Private MD: Diagnosis: Abdominal pain, unspecified;Low back pain;Other cholelithiasis without obstruction Presentation: 02/25 13:07 Chief complaint: Patient states: "Last night, I started having severe back pain and mb9 abdominal pain in my RUQ. I've had N/V as well. I had a epidural 8 months ago and I think my pain is from that". Coronavirus screen: Vaccine status: Patient reports being unvaccinated. Ebola Screen: No symptoms or risks identified at this time. Initial Sepsis Screen: Does the patient meet any 2 criteria? No. Patient's initial sepsis screen is negative. Does the patient have a suspected source of infection? No. Patient's initial sepsis screen is negative. Risk Assessment: Do you want to hurt yourself or someone else? Patient reports no desire to harm self or others. Onset of symptoms was February 25, 2023. 13:07 Method Of Arrival: Ambulatory mb9 13:07 Acuity: CARMEN 3 mb9 Triage Assessment: 13:09 General: Appears uncomfortable, Behavior is cooperative. Pain: Complains of pain in mb9 abdomen Pain radiates to back. EENT: No signs and/or symptoms were reported regarding the EENT system. Neuro: Polo Agitation-Sedation Scale (RASS): 0 - Alert and Calm. Cardiovascular: Patient's skin is warm and dry. Respiratory: Airway is patent Respiratory effort is even, unlabored, Respiratory pattern is regular, symmetrical. GI: Abd is soft Abdomen is tender to palpation in right upper quadrant Reports nausea, vomiting. : Denies burning with urination. Derm: Skin is pink, warm \\T\\ dry. Musculoskeletal: Range of motion: intact in all extremities. Historical: - Allergies: 13:08 NKA; mb9 - Home Meds: 13:08 None [Active]; mb9 - PMHx: 13:08 None; mb9 - PSHx: 13:09 Ligation of fallopian tube; mb9 - Immunization history:: Adult Immunizations up to date. - Social history:: Smoking status: Patient denies any tobacco usage or history of. Screenin:38 [facility] ED Fall Risk Assessment (Adult) History of falling in the last 3 months, tm6 including since admission No falls in past 3 months (0 pts). Abuse screen: Denies threats or abuse. Denies injuries from another. Nutritional screening: No deficits noted. Tuberculosis screening: No symptoms or risk factors identified. Assessment: 13:38 General: Appears uncomfortable, Behavior is calm, cooperative. Pain: Complains of pain tm6 in abdomen. Neuro: Level of Consciousness is awake, alert, obeys commands, Oriented to person, place, time, situation. Cardiovascular: Capillary refill < 3 seconds Patient's skin is warm and dry. Respiratory: Airway is patent Respiratory effort is even, unlabored, Respiratory pattern is regular, symmetrical. GI: Abdomen is round non-distended, Abdomen is tender to palpation. : No signs and/or symptoms were reported regarding the genitourinary system. EENT: No signs and/or symptoms were reported regarding the EENT system. Derm: No signs and/or symptoms reported regarding the dermatologic system. Musculoskeletal: No signs and/or symptoms reported regarding the musculoskeletal system. 14:48 Reassessment: Patient appears in no apparent distress at this time. No changes from tm6 previously documented assessment. Patient and/or family updated on plan of care and expected duration. Pain level reassessed. Vital Signs: 13:07 BP 130 / 89; Pulse 73; Resp 18; Temp 98.1; Pulse Ox 100% on R/A; Weight 79.38 kg; mb9 Height 5 ft. 2 in. ; Pain 10/10; 14:02 BP 143 / 89; Pulse 50; Resp 17; Pulse Ox 97% on R/A; Pain 9/10; tm6 14:47 BP 109 / 64; Pulse 63; Resp 18; Pulse Ox 97% on R/A; tm6 14:59 Pain 4/10; tm6 13:07 Body Mass Index 32.01 (79.38 kg, 157.48 cm) mb9 13:07 Pain Scale: Adult mb9 14:02 Pain Scale: Adult tm6 14:59 Pain Scale: Adult tm6 ED Course: 13:00 Patient arrived in ED. mr 13:03 John Paul Mancilla DO is Attending Physician. ms3 13:08 Triage completed. mb9 13:09 Arm band placed on. mb9 13:23 Parminder Woodruff, RN is Primary Nurse. tm6 13:33 CBC with Diff Sent. bc6 13:33 CMP Sent. bc6 13:33 Lipase Sent. bc6 13:33 Inserted saline lock: 20 gauge in right antecubital area, using aseptic technique. bc6 Blood collected. 13:37 Urinalysis w/ reflexes Sent. tm6 13:38 Patient has correct armband on for positive identification. Bed in low position. Call tm6 light in reach. Side rails up X2. Provided Education on: need for VS monitoring. Door closed. Noise minimized. Warm blanket given. 13:38 No provider procedures requiring assistance completed. tm6 13:54 US Abdomen Limited In Process Unspecified. EDMS 15:26 Luis Franks MD is Referral Physician. ms3 15:26 Deepak Nathan DO is Referral Physician. ms3 15:43 IV discontinued, intact, bleeding controlled, No redness/swelling at site. Pressure tm6 dressing applied. Administered Medications: 14:01 Drug: Famotidine IVP 20 mg IVP once; dilute with 10 mL 0.9% NaCl; give over 2 minutes tm6 Route: IVP; Site: right antecubital; 14:01 Drug: Ondansetron IVP 4 mg IVP once; over 2 minutes Route: IVP; Site: right antecubital;tm6 14:02 Drug: TORadol - Ketorolac IVP 15 mg IVP once Route: IVP; Site: right antecubital; tm6 Medication: 13:38 VIS not applicable for this client. tm6 Outcome: 15:26 Discharge ordered by . ms3 15:42 Discharged to home ambulatory, tm6 15:42 Condition: improved 15:42 Discharge instructions given to patient, Instructed on discharge instructions, follow up and referral plans. Demonstrated understanding of instructions, follow-up care, 15:43 Patient left the ED. tm6 Signatures: Dispatcher [employer] EDMO Sarah Osullivan, Tr Reg John Paul Dejesus, DO ms3 Sarah Salazar RN RN Maryuri Storm bcParminder Person RN RN tm6 Corrections: (The following items were deleted from the chart) 13:09 13:08 PSHx: None; mb9 mb9
[2023-02-25 16:06] VITALS: TEMP 98.1
[2023-02-25 16:08] VITALS: BP 109/64; O2SAT 97
== END 2023-02-25 15:43 | disposition home or self-care (01) ==
LOC: ER 12:57
DX: K80.81 Other cholelithiasis with obstruction (principal); R10.9 Unspecified abdominal pain; M54.50 Low back pain, unspecified
CPT/HCPCS: 36415; 76705; 80053; 81001; 83690; 85025; 96374; 96375; 99284; J2405